=== PATIENT | male | born 1940 | race Caucasian/White ===

== ENCOUNTER 2016-05-02 09:13 | Emergency (ER) | payer MEDICARE, OTHER ==
--- NOTE | 2016-05-02 13:16 | XRAY Preliminary Report ---
Exam: XR Elbow 2 View RT IMPRESSION: 1. Prominent medial soft tissue swelling without displaced fracture. 2. Small osteophytes and epicondylar spurring with small elbow effusion. In the setting of trauma the presence of an elbow effusion is suggestive of a nondisplaced fracture. [facility] SITE ID: [id number]
--- NOTE | 2016-05-02 13:19 | XRAY Report ---
EXAM: Right Elbow Radiography EXAM DATE: 05/02/2016 12:45 PM. CLINICAL HISTORY: Blunt trauma, swelling. COMPARISON: None. TECHNIQUE: 3 views, 4 films. FINDINGS: Bones: No displaced fracture seen. Joints: Small osteophytes at the margin of the ulna with enthesopathic spurring at the lateral epicon dyle. Small elbow effusion. Soft Tissues: Prominent medial soft tissue swelling. IMPRESSION: 1. Prominent medial soft tissue swelling without displaced fracture. 2. Small osteophytes and epicondylar spurring with small elbow effusion. In the setting of trauma the presence of an elbow effusion is suggestive of a nondisplaced fracture. [facility] Referring Provider Line: [phone] SITE ID: [id number]
--- NOTE | 2016-05-02 13:19 | XRAY Preliminary Report ---
Exam: XR Forearm RT IMPRESSION: Medial soft tissue swelling without displaced fracture. Small elbow effusion. Please see elbow report for additional comments. [facility] SITE ID: [id number]
--- NOTE | 2016-05-02 13:22 | XRAY Report ---
EXAM: Right Forearm Radiography EXAM DATE: 05/02/2016 12:45 PM. CLINICAL HISTORY: Blunt trauma, swelling. COMPARISON: None. TECHNIQUE: 2 views. FINDINGS: Bones: Normal. No fractures or bone lesions. Joints: No dislocation. Small elbow effusion. Soft Tissues: Medial soft tissue swelling. IMPRESSION: Medial soft tissue swelling without displaced fracture. Small elbow effusion. Please see elbow report for additional comments. [facility] Referring Provider Line: [phone] SITE ID: [id number]
--- NOTE | 2016-05-02 14:02 | ED Physician Documentation ---
History of Present Illness - Stated complaint Stated Complaint: RT ARM SWELLING - Chief complaint Chief Complaint: Ext Problem PD PAST MEDICAL HISTORY - Past Medical History Past Medical History: Yes Cardiovascular: Hypertension, High cholesterol, Atrial fibrillation Respiratory: Asthma, Pneumonia Endocrine/Autoimmune: Type 2 diabetes Other Past Medical History: prostate cancer, had seed placed. cellulitis - Past Surgical History Past Surgical History: Yes - Present Medications Home Medications: Ambulatory Orders Medication Instructions Recorded Confirmed Aspirin [Aspir-Low] 1 tab PO DAILY 05/02/16 05/02/16 Furosemide 1 tab PO DAILY 05/02/16 05/02/16 Lisinopril 1 tab PO DAILY 05/02/16 05/02/16 Lovastatin 40 mg PO DAILY 05/02/16 05/02/16 Metoprolol Succinate 1 tab PO DAILY 05/02/16 05/02/16 diltiaZEM [Cardizem] 180 mg PO BID 05/02/16 05/02/16 metFORMIN [Glucophage] 1,000 mg PO BID 05/02/16 05/02/16 - Allergies Allergies/Adverse Reactions: Allergies Allergy/AdvReac Type Severity Reaction Status Date / Time digitalis leaf Allergy Hives Verified 05/02/16 09:27 - Social History Does the pt smoke?: No Smoking Status: Never smoker Does the pt drink ETOH?: Yes Results - Vitals Vitals: Vital Signs - 24 hr 05/02/16 09:25 Temperature 36.8 C Heart Rate 84 Respiratory 18 Rate Blood Pressure 147/81 H O2 Saturation 99 Oxygen O2 Source Room air Departure - Departure Disposition: 01 Home, Self Care Clinical Impression: Elbow fracture, right Qualifiers: Encounter type: initial encounter Fracture type: closed Qualified Code(s): S42.401A - Unspecified fracture of lower end of right humerus, initial encounter for closed fracture Condition: Good Instructions: ED Fx Elbow, ED Splint Care Fiberglass Follow-Up: Michele Thakur MD [Provider Admit Priv/Credential] - Comments: The xray shows fluid in your elbow joint which suggests there is a non displaced fracture. So we have placed you in a splint and I have put in a referral to orthopedics ( you will need to call to schedule) Try to elevate your arm as much as possible to decrease the swelling Take tylenol as needed for the pain. And please follow up with your PMD to get your blood pressure rechecked - it was high today
[2016-05-02 14:12] VITALS: BP 139/72
== END 2016-05-02 14:13 | disposition home or self-care (01) ==
LOC: ED 09:13
DX: S42.401A Unspecified fracture of lower end of right humerus, initial encounter for closed fracture (principal); W22.8XXA Striking against or struck by other objects, initial encounter; I10 Essential (primary) hypertension; I48.91 Unspecified atrial fibrillation; E11.9 Type 2 diabetes mellitus without complications; Z79.84 Long term (current) use of oral hypoglycemic drugs; Z79.899 Other long term (current) drug therapy; Z79.82 Long term (current) use of aspirin; Z85.46 Personal history of malignant neoplasm of prostate
CPT/HCPCS: 29125; 99283

== ENCOUNTER 2016-06-19 07:30 | Outpatient (CLI) | payer MEDICARE, OTHER | END 2016-06-19 07:31 | disposition home or self-care (01) | DX: E11.9 Type 2 diabetes mellitus without complications (principal); D64.9 Anemia, unspecified; C61 Malignant neoplasm of prostate; R74.0 Nonspecific elevation of levels of transaminase and lactic acid dehydrogenase [LDH]; E78.5 Hyperlipidemia, unspecified ==

== ENCOUNTER 2017-06-16 10:56 | Outpatient (CLI) | payer MEDICARE, OTHER ==
--- NOTE | 2017-06-16 13:42 | XRAY Report ---
TWO VIEW CHEST: 06/16/2017 CLINICAL INDICATION: Abnormal breath sounds, asthma. COMPARISON: 07/08/2010. FINDINGS: Frontal and lateral views of the chest demonstrate an enlarged cardiac silhouette. Bibasilar airspace disease and small effusions are stable. No new infiltrate or pneumothorax is present. IMPRESSION: STABLE CARDIOMEGALY, BIBASILAR AIRSPACE DISEASE, AND SMALL EFFUSIONS. TD: 06/16/2017 13:40
== END 2017-06-16 10:57 | disposition home or self-care (01) ==
LOC: DI.S 10:56
PROVIDERS: ATTEND Nurse Practitioner Family
DX: J98.4 Other disorders of lung (principal); J90 Pleural effusion, not elsewhere classified; I51.7 Cardiomegaly
CPT/HCPCS: 71046

== ENCOUNTER 2017-06-24 07:34 | Outpatient (CLI) | payer MEDICARE, OTHER ==
[2017-06-24 10:23] LABS: BASOPHILS % (AUTO) 0.4 %; EOSINOPHILS # (AUTO) 0.1 10^3/uL (0.0-0.7); EOSINOPHILS % (AUTO) 1.4 %; HGB - HEMOGLOBIN 14.2 g/dL (14.0-18.0); LYMPHOCYTES # (AUTO) 0.9 10^3/uL (1.5-3.5); LYMPHOCYTES % (AUTO) 17.3 %; MEAN CORPUSCULAR HEMOGLOBIN 33.9 pg (27.0-31.0); MEAN CORPUSCULAR HGB CONC 32.7 g/dL (32.0-36.0); MEAN CORPUSCULAR VOLUME 103.9 fL (80.0-94.0); MEAN PLATELET VOLUME 8.9 fL (7.4-11.4); MONOCYTES # (AUTO) 0.7 10^3/uL (0.0-1.0); MONOCYTES % (AUTO) 12.9 %; NEUTROPHILS # (AUTO) 3.6 10^3/uL (1.5-6.6); PLT - PLATELET COUNT 146 10^3/uL (130-450); RED BLOOD COUNT 4.19 10^6/uL (4.70-6.10); RED CELL DISTRIBUTION WIDTH 14.9 % (12.0-15.0); WHITE BLOOD COUNT 5.3 x10^3/uL (4.8-10.8)
[2017-06-24 10:45] LABS: HB2 TOTAL 15.7 g/dL; HEMOGLOBIN A1C 0.65 g/dL; HEMOGLOBIN A1C % 5.9 % (4.6-6.2)
[2017-06-24 10:49] LABS: ALBUMIN 4.2 g/dL (3.2-5.5); ALBUMIN/GLOBULIN RATIO 1.3 (1.0-2.2); ALKALINE PHOSPHATASE 93 IU/L (42-121); ALT ALANINE AMINOTRANSFERASE 15 IU/L (10-60); AST ASPARTATE AMINOTRANSFERASE 15 IU/L (10-42); BILIRUBIN,TOTAL 0.8 mg/dL (0.2-1.0); BUN - BLOOD UREA NITROGEN 48 mg/dL (6-20); CALCIUM 8.7 mg/dL (8.5-10.3); CARBON DIOXIDE - CO2 27 mmol/L (21-32); CHLORIDE 102 mmol/L (101-111); CHOL/HDL RATIO 2.1 (<5.0); CHOLESTEROL 140 mg/dL; CREATININE 2.2 mg/dL (0.6-1.2); GFR - MDRD 29 (>89); GLUCOSE 108 mg/dL (70-100); HDL CHOLESTEROL 66 mg/dL; LDL CHOLESTEROL,CALCULATED 60 mg/dL; LDL/HDL RATIO 0.9 (<3.6); SODIUM 136 mmol/L (135-145); TOTAL PROTEIN 7.4 g/dL (6.7-8.2); VLDL CHOLESTEROL 14 mg/dL
== END 2017-06-24 07:35 | disposition home or self-care (01) ==
LOC: LAB.F 07:34
PROVIDERS: ATTEND Nurse Practitioner Family
DX: E11.9 Type 2 diabetes mellitus without complications (principal); I10 Essential (primary) hypertension; R74.0 Nonspecific elevation of levels of transaminase and lactic acid dehydrogenase [LDH]; E78.5 Hyperlipidemia, unspecified; I50.9 Heart failure, unspecified; I51.7 Cardiomegaly
CPT/HCPCS: 36415; 80053; 80061; 82043; 83036; 83721; 85025

== ENCOUNTER 2017-10-12 12:41 | Outpatient (CLI) | payer MEDICARE, OTHER | END 2017-10-12 12:42 | disposition home or self-care (01) | LOC: EMS 12:41 | PROVIDERS: ATTEND Surgery | DX: R41.82 Altered mental status, unspecified (principal); R09.89 Other specified symptoms and signs involving the circulatory and respiratory systems | CPT/HCPCS: A0425; A0427 ==

== ENCOUNTER 2017-10-12 12:58 | Inpatient (IN) | payer MEDICARE, OTHER ==
[2017-10-12] MEDS ORDERED: ALBUTEROL NEB 2.5 MG/3 ML INH STA (13:11)
[2017-10-12 13:13] LABS: VBG BASE EXCESS -12.9 mmol/L (-2 - +2); VBG PCO2 98.3 mmHg (41-51); VBG PH 6.959 (7.31-7.41); VBG PO2 79.4 mmHg (25-47); VBG TOTAL CO2 24.6 mmol/L (24-29)
[2017-10-12 13:15] LABS: BASOPHILS # (AUTO) 0.1 10^3/uL (0.0-0.1); EOSINOPHILS % (AUTO) 0.1 %; LYMPHOCYTES # (AUTO) 0.5 10^3/uL (1.5-3.5); MEAN CORPUSCULAR HGB CONC 30.8 g/dL (32.0-36.0); NEUTROPHILS # (AUTO) 8.2 10^3/uL (1.5-6.6); WHITE BLOOD COUNT 9.5 x10^3/uL (4.8-10.8)
[2017-10-12 13:31] LABS: BASOPHILS % (AUTO) 0.5 %; HGB - HEMOGLOBIN 14.7 g/dL (14.0-18.0); LYMPHOCYTES % (AUTO) 4.9 %; MEAN CORPUSCULAR HEMOGLOBIN 33.4 pg (27.0-31.0); MEAN CORPUSCULAR VOLUME 108.4 fL (80.0-94.0); MEAN PLATELET VOLUME 9.2 fL (7.4-11.4); MONOCYTES # (AUTO) 0.9 10^3/uL (0.0-1.0); NEUTROPHILS % (AUTO) 85.5 %; PLT - PLATELET COUNT 207 10^3/uL (130-450); RED BLOOD COUNT 4.41 10^6/uL (4.70-6.10); RED CELL DISTRIBUTION WIDTH 15.5 % (12.0-15.0)
[2017-10-12 13:33] LABS: ALBUMIN 3.8 g/dL (3.2-5.5); BILIRUBIN,TOTAL 0.9 mg/dL (0.2-1.0); CALCIUM 8.7 mg/dL (8.5-10.3); CREATININE 4.8 mg/dL (0.6-1.2); TOTAL PROTEIN 7.7 g/dL (6.7-8.2)
[2017-10-12] MEDS ORDERED: SODIUM CHLORIDE 0.9% 1,000 ML IV ONE ×3 (13:46→16:10)
[2017-10-12] MEDS ORDERED: FUROSEMIDE 40 MG/4 ML VIAL IVP STA (13:46)
[2017-10-12] MEDS ORDERED: ETOMIDATE 40 MG/20 ML VIAL IVP STA (13:46)
[2017-10-12] MEDS ORDERED: SODIUM BICARBONATE ABBOJECT 50 MEQ/50 ML SYRINGE IVP STA (13:47)
[2017-10-12] MEDS ORDERED: INSULIN REGULAR HUMAN 100 UNIT/1 ML 10 ML MDV IVP STA (13:48)
[2017-10-12] MEDS ORDERED: DEXTROSE 50% ABBOJECT 25 GM/50 ML SYRINGE IVP STA (13:48)
--- NOTE | 2017-10-12 13:52 | XRAY Report ---
Procedure Date: 10/12/2017 Accession Number: [id number] / [id number] Procedure: XR - Chest 1 View X-Ray CPT Code: 76559 FULL RESULT: EXAM: CHEST RADIOGRAPHY EXAM DATE: 10/12/2017 01:01 PM. CLINICAL HISTORY: Shortness of breath. Unresponsive. COMPARISON: 06/16/2017. TECHNIQUE: 1 view. FINDINGS: Lungs/Pleura: The patient is slightly rotated. Increased, near complete opacification of the left hemithorax. Diffuse vascular engorgement and perihilar predominant airspace opacities in the right hemithorax, likely representing pulmonary edema. Large left and small right pleural effusions. Mediastinum: Cardiomegaly, difficult to accurately assess given opacification of the left hemithorax. Other: Thoracic spine DISH. IMPRESSION: 1. Cardiomegaly with pulmonary edema indicating CHF. 2. Near-complete opacification of the left hemithorax due to large pleural effusion with superimposed atelectasis and edema. 3. Small right pleural effusion. [facility]
[2017-10-12 14:08] LABS: PLATELET ESTIMATE, MANUAL NORMAL (130-450,000) (NORMAL); RBC MORPHOLOGY (MULTIPLE) 2+ MACROCYTOSIS (NORMAL)
[2017-10-12] MEDS ORDERED: cefTRIAXone 1 GM in SODIUM CHLORIDE 0.9% MINIBAG 100 ML IV STA (14:19)
[2017-10-12] MEDS ORDERED: AZITHROMYCIN INJ 500 MG in SODIUM CHLORIDE 0.9% 250 ML IV STA (14:20)
--- NOTE | 2017-10-12 14:20 | ED Physician Documentation ---
PD HPI DYSPNEA - Stated complaint Stated Complaint: UNRESPONSIVE - Chief complaint Chief Complaint: Resp - History obtained from History obtained from: Family, EMS - History of Present Illness Timing - onset: How many weeks ago (He has had some trouble breathing since last winter but his states his breathing is worsened in the last week with progressive weakness generally. He has become less active and attentive in the last 2-3 days and this morning was unresponsive. He has not had any particular cough or fevers. He has some leg edema.) Timing - onset during: Rest Timing - duration: Days Timing - details: Gradual onset, Still present (worsening mentation and alertness the past 2-3 days; unresponsive today.) Inciting event(s): Other (dyspnea worsening). No: Out of meds Improved by: Rest Worsened by: Exertion Associated symptoms: Cough (mild chronic) Similar symptoms before: Has not had sx before Recently seen: Clinic (couple weeks ago and had CXR which showed left effusion but no significant acute changes, according to the , and he was given MDI.) Review of Systems Unable to obtain: Intubated, AMS, Other (info from ) Constitutional: denies: Fever Nose: denies: Rhinorrhea / runny nose, Congestion Cardiac: denies: Chest pain / pressure Respiratory: reports: Dyspnea, Cough (mild chronic since last winter, per spouse ). denies: Wheezing GI: denies: Abdominal Pain, Vomiting, Diarrhea Skin: denies: Laceration (s) PD PAST MEDICAL HISTORY - Past Medical History Cardiovascular: Hypertension, High cholesterol, Atrial fibrillation Respiratory: Asthma, Emphysema, Pneumonia Endocrine/Autoimmune: Type 2 diabetes GI: None : Incontinence Psych: None Musculoskeletal: None Derm: Other Other Past Medical History: Cardioversion. Recent onset of incontinence - Past Surgical History Past Surgical History: Yes - Present Medications Home Medications: Ambulatory Orders Medication Instructions Recorded Confirmed Furosemide 40 mg PO DAILY 05/02/16 10/12/17 Lovastatin 40 mg PO QPM 05/02/16 10/12/17 diltiaZEM [Cardizem] 90 mg PO BID 05/02/16 10/12/17 metFORMIN [Glucophage] 1,000 mg PO QDBREAKFAST 05/02/16 10/12/17 Albuterol Sulfate [Proair Hfa 2 puffs INH Q4H PRN 10/12/17 10/12/17 Inhaler] Aspirin 162.5 mg PO DAILY 10/12/17 10/12/17 Fluticasone 110 Mcg [Flovent] 2 puffs INH BID 10/12/17 10/12/17 Lisinopril 10 mg PO DAILY 10/12/17 10/12/17 Metoprolol Tartrate 50 mg PO BID 10/12/17 10/12/17 - Allergies Allergies/Adverse Reactions: Allergies Allergy/AdvReac Type Severity Reaction Status Date / Time digitalis leaf Allergy Hives Verified 05/02/16 09:27 - Social History Does the pt smoke?: No Smoking Status: Never smoker Does the pt drink ETOH?: Yes ETOH Use: Wine Does the pt have substance abuse?: No - Immunizations Immunizations are current?: No - POLST Patient has POLST: No PD ED PE NORMAL - Vitals Vital signs reviewed: Yes - General General: Other (responsive only to tactile/painful stimuli (sternal rubbing)) - HEENT HEENT: Atraumatic, Pharynx benign, Other (does have gag reflex) - Neck Neck: Supple, no meningeal sign, No adenopathy, No JVD - Cardiac Cardiac: RRR, No murmur - Respiratory Respiratory: No: Clear bilaterally (diminished left side; with coarse sounds and some wheezing. ) - Abdomen Abdomen: Soft, Non distended. No: Normal bowel sounds (decreased) - Male Male : Other (external genitalia normal. There is yeast appearing rash in inguinal areas and around the base of penis. Does not appear too bad on scrutm, and no obvious scrotal swelling. ) - Rectal Rectal: Deferred - Derm Derm: Normal color, Warm and dry - Extremities Extremities: Other (2+ edema in both legs with some chronic stasis changes noted. ) - Neuro Neuro: No: Alert and oriented X 3 Eye Opening: To Pain Motor: Withdraws to Pain Verbal: None GCS Score: 7 - Psych Psych: No: Normal affect Results - Vitals Vitals: Vital Signs - 24 hr 10/12/17 10/12/17 10/12/17 12:58 13:00 13:06 Temperature 36.0 C L Heart Rate 83 91 84 Respiratory 39 H Rate Blood Pressure 102/59 L 77/57 L 102/59 L O2 Saturation 92 92 07/22/18 07/22/18 07/22/18 13:11 13:30 13:46 Temperature Heart Rate 86 83 82 Respiratory 35 H 34 H 16 Rate Blood Pressure 81/59 L 108/56 L 103/47 L O2 Saturation 94 91 L 10/12/17 10/12/17 14:20 14:26 Temperature Heart Rate 85 84 Respiratory 14 Rate Blood Pressure 91/53 L O2 Saturation 100 Oxygen O2 Source Room air Oxygen Flow Rate 15 - Labs Labs: Laboratory Tests 10/12/17 10/12/17 10/12/17 13:05 13:05 13:05 WBC 9.5 RBC 4.41 L Hgb 14.7 Hct 47.8 MCV 108.4 H MCH 33.4 H MCHC 30.8 L RDW 15.5 H Plt Count 207 MPV 9.2 Neut # (Auto) 8.2 H Lymph # (Auto) 0.5 L [place] # (Auto) 0.9 Eos # (Auto) 0.0 Baso # (Auto) 0.1 Absolute Nucleated RBC 0.04 Nucleated RBC % 0.4 Manual Slide Review Indicated Platelet Estimate NORMAL (130-450,000) RBC Morph Micro Appear 2+ MACROCYTOSIS VBG pH VBG pCO2 VBG pO2 VBG HCO3 VBG Total CO2 VBG O2 Saturation VBG Base Excess Sodium 140 Potassium 7.5 H* Chloride 106 Carbon Dioxide 27 Anion Gap 7.0 BUN 115 H* Creatinine 4.8 H Estimated GFR (MDRD) 12 L Glucose 140 H Lactic Acid Calcium 8.7 Total Bilirubin 0.9 AST 16 ALT 17 Alkaline Phosphatase 95 Troponin I < 0.04 B-Natriuretic Peptide Total Protein 7.7 Albumin 3.8 Globulin 3.9 Albumin/Globulin Ratio 1.0 Lipase 113 H Ethyl Alcohol 10/12/17 10/12/17 10/12/17 13:05 13:05 13:05 WBC RBC Hgb Hct MCV MCH MCHC RDW Plt Count MPV Neut # (Auto) Lymph # (Auto) [place] # (Auto) Eos # (Auto) Baso # (Auto) Absolute Nucleated RBC Nucleated RBC % Manual Slide Review Platelet Estimate RBC Morph Micro Appear VBG pH VBG pCO2 VBG pO2 VBG HCO3 VBG Total CO2 VBG O2 Saturation VBG Base Excess Sodium Potassium Chloride Carbon Dioxide Anion Gap BUN Creatinine Estimated GFR (MDRD) Glucose Lactic Acid 0.9 Calcium Total Bilirubin AST ALT Alkaline Phosphatase Troponin I B-Natriuretic Peptide 826 H Total Protein Albumin Globulin Albumin/Globulin Ratio Lipase Ethyl Alcohol < 5.0 10/12/17 13:05 WBC RBC Hgb Hct MCV MCH MCHC RDW Plt Count MPV Neut # (Auto) Lymph # (Auto) [place] # (Auto) Eos # (Auto) Baso # (Auto) Absolute Nucleated RBC Nucleated RBC % Manual Slide Review Platelet Estimate RBC Morph Micro Appear VBG pH 6.959 L VBG pCO2 98.3 H VBG pO2 79.4 H VBG HCO3 21.6 L VBG Total CO2 24.6 VBG O2 Saturation 92.5 H VBG Base Excess -12.9 L Sodium Potassium Chloride Carbon Dioxide Anion Gap BUN Creatinine Estimated GFR (MDRD) Glucose Lactic Acid Calcium Total Bilirubin AST ALT Alkaline Phosphatase Troponin I B-Natriuretic Peptide Total Protein Albumin Globulin Albumin/Globulin Ratio Lipase Ethyl Alcohol - Rads (name of study) chest xray Radiology: Prelim report reviewed (large left effusion, with crowding of the trachea slightly to the right. Right lung appears with some fluid c/w CHF. ) CXR post intubation Radiology: Prelim report reviewed (good tube position) CXR post thoracentesis Radiology: Prelim report reviewed, Discussed with rads (improved left lung garcia. Small air appearance at lower left at site of needle insertion c/w possible small PTX. Suggests repeat film in few hours or so. ) Procedures - Intubation Provider: Emergency physician Medications: Etomidate Blade: Glidescope Tube: Size-enter number (8), Cuffed, Marked at lips-enter cm (26) Route: Oral Confirmation: Direct visualization, Bilateral breath sounds, No abdominal breath sound, End tidal CO2, Pulse ox, Chest xray (goo position) Complications: No compications - Thoracentesis Preparation: Consent obtained (verbally from ), Sterile prep and drape, Supine (intubated) Technique: Catheter over needle, Intercostal space - enter (6), Lateral, Ultrasound used Fluid: Clear, Bloody (yellow with tint of redness), Sent for cell count, Sent for gram stain, Sent for culture Aftercare: CXR obtained, No complications, Patient tolerated well, Dressing applied PD MEDICAL DECISION MAKING - ED course Complexity details: considered differential (He is very sick in critical condition. He appears to be in some element of CHF. There is a very large left effusion and this may have caused respiratory difficulty as well. He likely has respiratory failure with hypercarbia and altered mentation. Will institute either BiPAP or intubation. His is yet to arrive on the initial assessment so intubation was deferred and respiratory support with oxygen and some airway positioning. His oxygenation was good. After discussing with his , we did elect for intubation emergently. This was done successfully without complications. He did have a gag reflex and some response to pain so was given etomidate prior to intubation. He then had NG and Patel placed as well. He had minimal urine output with the Patel catheter. He was given IV fluids for pressure support and this was maintaining it adequately initially. Given the large left effusion, I think that is a large part of his respiratory problem recently and so after talking with his I did do a thoracentesis with removal of 1600 mL of fluid from the left side. His peak pressures on ventilator did improve and his oxygenation also improved from 96-99% and we titrated down the FiO2. He had been given medications IV for his hyperkalemia related to the acute renal insufficiency presumably from hypoxic multisystem organ failure. I told his that this was very critical condition and potentially life-threatening. I did talk with the hospitalist and presented the patient currently in stable condition though with critical findings of high potassium, renal failure, intubated with respiratory failure and postthoracentesis.), d/w family (I talked with his when she arrived. At that time we had had opportunity get chest x-ray and blood gas and this showed respiratory failure and large left effusion. I have confirmed and discussed with her the treatment possibilities. She feels the patient would like brief intubation and thoracentesis but not prolonged intubation. She does not feel he would want transfer for dialysis. Therefore the treatment plan at this point is intubation and emergent thoracentesis as well as standard NG tube and Patel and medications. CPR is okay. However she wants to be able to reassess his status over a few days as we discussed the possibility that he may have multisystem organ failure due to the hypoxia and dehydration. If so his mentation and kidney function may not improve and if so she may want to discontinue treatments at that point. I told her it would take a little bit of time to see the recover possibility and she understands that.) - Critical Care Time(min): 80 Time Includes: Direct patient care, Review records, Reassess patient, Document care, Coordinate care, Medical consult, Family consult for tx dec Data interpretation: Labs, CXR Procedures included in critical care time: Ventilator mgmt Procedures excluded from critical care time: Intubation, EKG, See progress note (thoracentesis) - Sepsis Event Vital Signs: Vital Signs - 24 hr 10/12/17 10/12/17 10/12/17 12:58 13:00 13:06 Temperature 36.0 C L Heart Rate 83 91 84 Respiratory 39 H Rate Blood Pressure 102/59 L 77/57 L 102/59 L O2 Saturation 92 92 10/12/17 10/12/17 10/12/17 13:11 13:30 13:46 Temperature Heart Rate 86 83 82 Respiratory 35 H 34 H 16 Rate Blood Pressure 81/59 L 108/56 L 103/47 L O2 Saturation 94 91 L 10/12/17 10/12/17 14:20 14:26 Temperature Heart Rate 85 84 Respiratory 14 Rate Blood Pressure 91/53 L O2 Saturation 100 Oxygen O2 Source Room air Oxygen Flow Rate 15 Departure - Departure Disposition: 66 [facility] DC/Xfer Clinical Impression: Hyperkalemia, Pleural effusion, left, Tinea cruris Altered mental state Qualifiers: Altered mental status type: somnolence Qualified Code(s): R40.0 - Somnolence Respiratory failure Qualifiers: Chronicity: acute Respiratory failure complication: hypoxia and hypercapnia Qualified Code(s): J96.01 - Acute respiratory failure with hypoxia Renal failure Qualifiers: Renal failure chronicity: acute on chronic Acute renal failure type: unspecified Chronic kidney disease stage: unspecified stage Qualified Code(s): N17.9 - Acute kidney failure, unspecified Condition: Critical Record reviewed to determine appropriate education?: Yes
[2017-10-12] MEDS ORDERED: LORazepam 2 MG/ML VIAL ONE (14:38)
--- NOTE | 2017-10-12 14:40 | XRAY Report ---
Procedure Date: 10/12/2017 Accession Number: [id number] / [id number] Procedure: XR - Chest 1 View X-Ray CPT Code: 69066 FULL RESULT: EXAM: CHEST RADIOGRAPHY EXAM DATE: 10/12/2017 02:06 PM. CLINICAL HISTORY: Post intubation. COMPARISON: Multiple prior chest radiographs, most recent 10/12/2017 1:01 PM. TECHNIQUE: 1 view. FINDINGS: The patient is slightly rotated. Lungs/pleura: Increased, dense opacification of the left hemithorax. Similar appearance of diffuse vascular enlargement and perihilar predominant air space opacities in the right hemithorax likely representing pulmonary edema. Persistent large left and small right pleural effusions. No pneumothorax. Mediastinum: Difficult to assess given dense opacification of the left hemithorax. Other: Interval intubation. The endotracheal tube terminates approximately 3 cm above the amanda. IMPRESSION: 1. Interval intubation. 2. Ongoing pulmonary edema. 3. Increased, dense opacification of the left hemithorax representing a combination of large effusion, atelectasis, and edema. [facility]
[2017-10-12] MEDS ORDERED: LORazepam 2 MG/ML VIAL IVP PRN (15:09)
[2017-10-12] MEDS ORDERED: LORazepam 2 MG/ML VIAL IVP STA (15:09)
[2017-10-12] MEDS ORDERED: PROCHLORPERAZINE 10 MG/2 ML VIAL IVP PRN (15:26)
[2017-10-12] MEDS ORDERED: SODIUM POLYSTYRENE SULFONATE 15 GM/60 ML BOTTLE PO STA (15:28)
--- NOTE | 2017-10-12 15:31 | XRAY Report ---
Procedure Date: 10/12/2017 Accession Number: [id number] / [id number] Procedure: XR - Chest 1 View X-Ray CPT Code: 57447 FULL RESULT: EXAM: CHEST RADIOGRAPHY EXAM DATE: 10/12/2017 03:16 PM. CLINICAL HISTORY: Post thoracentesis. COMPARISON: 10/12/2017. TECHNIQUE: 1 view. FINDINGS: Lungs/Pleura: New left thoracentesis with significant decrease in size of left pleural effusion. There is a small triangular-shaped gas density lucency at the left costophrenic angle, consistent with a very small pneumothorax and suggestive of a noncompliant left lung after reexpansion. There interstitial densities bilaterally. Mediastinum: There is cardiomegaly. There is an endotracheal tube with tip 1.6 cm above amanda. Other: None. IMPRESSION: Small pneumothorax at left lateral base costophrenic angle, after thoracentesis suggestive of incompletely expanded or noncompliant left lung. [facility] The above findings were discussed with iKko Landa by Dr. Juan Reynoso at 15:30 hrs on 10/12/17.
[2017-10-12 16:05] LABS: ABG HCO3 20.4 mmol/L (22.0-26.0); ABG OXYGEN SATURATION 97 % (94-98); ABG PO2 91 mmHg (80-100); ABG TCO2 22.4 MMOL/L (21.0-29.0); ALLEN TEST POSITIVE
[2017-10-12 16:08] LABS: ABG PH 7.11 (7.35-7.45)
[2017-10-12 16:09] LABS: ABG PCO2 65 mmHg (34-45)
[2017-10-12 16:31] LABS: CALCIUM 8.2 mg/dL (8.5-10.3); CREATININE 4.8 mg/dL (0.6-1.2)
[2017-10-12] MEDS: DEXTROSE 5%-0.9% NACL 1,000 ML IV SCH (16:36)
[2017-10-12 18:35] LABS: BF SOURCE PLEURAL; CC,BF RBC 14129 /mm^3
[2017-10-12 18:36] LABS: BF COLOR PINK
[2017-10-12] MEDS ORDERED: AMIODARONE 360 MG/200 ML 200 ML IV SCH (18:45)
[2017-10-12] MEDS ORDERED: AMIODARONE 150 MG/100 ML 100 ML IV SCH (18:45)
[2017-10-12] MEDS ORDERED: THIAMINE INJ 100 MG, FOLIC ACID INJ 1 MG in SODIUM CHLORIDE 0.9% 100ML 100 ML IV SCH (19:00)
[2017-10-12] MEDS: PROPOFOL 1000 MG/100 ML 100 ML IV SCH (19:03)
[2017-10-12] MEDS: SODIUM CHLORIDE FLUSH 0.9% 10 ML SYRINGE IVP SCH (19:03)
[2017-10-12 19:10] LABS: LYMPHOCYTES %,BODY FLUID 28; MACROPHAGES %,BODY FLUID 31 %; MESOTHELIAL %, BF 15 %; MONOCYTES %,BODY FLUID 13 %
[2017-10-12] MEDS ORDERED: SODIUM POLYSTYRENE SULFONATE 15 GM/60 ML BOTTLE PR SCH (19:48)
[2017-10-12] MEDS ORDERED: INSULIN REGULAR HUMAN 100 UNIT/1 ML 10 ML MDV IVP SCH (19:50)
[2017-10-12] MEDS ORDERED: DEXTROSE 50% ABBOJECT 25 GM/50 ML SYRINGE IVP SCH (19:51)
[2017-10-12] MEDS ORDERED: DEXTROSE 5% 250 ML IV ONE (19:57)
--- NOTE | 2017-10-12 20:22 | XRAY Report ---
Procedure Date: 10/12/2017 Accession Number: [id number] / [id number] Procedure: XR - Chest for Line Placement CPT Code: FULL RESULT: EXAM: CHEST RADIOGRAPHY EXAM DATE: 10/12/2017 07:34 PM. CLINICAL HISTORY: Right IJ CVC placement. COMPARISON: Multiple prior chest radiographs, most recent 10/12/2017 3:07 PM. TECHNIQUE: 1 view. FINDINGS: Lungs/Pleura: Similar appearance of small left pneumothorax with approximately 6 mm apical pleural separation and dominant ex vacuo component in the lateral left base. Interval reaccumulation of small left pleural effusion. Persistent small right pleural effusion. No right pleural effusion. Ongoing pulmonary vascular engorgement. Mediastinum: Cardiomegaly, as before. Other: The patient remains intubated. A new enteric tube terminates in the proximal stomach. A new right IJ central venous catheter likely terminates in the upper SVC. IMPRESSION: 1. New right IJ CVC likely terminating in the upper SVC. No right pneumothorax. 2. Similar appearance of small left pneumothorax with dominant ex vacuo component in the lateral left base, with interval reaccumulation of small left pleural effusion. 3. Persistent pulmonary vascular congestion and small right pleural effusion. [facility] The above findings were discussed with Dr. Connolly by Dr. Shelia Guadalupe at 20:20 hrs on 10/12/17.
[2017-10-12] MEDS ORDERED: NYSTATIN CREAM 15 GM TUBE TOP ONE (20:37)
[2017-10-12] MEDS ORDERED: MIDAZOLAM 50 MG/10 ML VIAL ONE (20:37)
[2017-10-12] MEDS: MIDAZOLAM DRIP 50 MG/100 ML BAG IV SCH (20:38)
[2017-10-12] MEDS: NYSTATIN CREAM 15 GM TUBE TOP SCH ×2 (21:49→22:56)
[2017-10-12] MEDS: FAMOTIDINE 20 MG/50 ML 50 ML IV SCH (22:52)
[2017-10-12 23:40] LABS: BILIRUBIN,URINE NEGATIVE (NEGATIVE); GLUCOSE, URINE (UA) NEGATIVE (NEGATIVE); KETONES,URINE (UA) NEGATIVE (NEGATIVE); LEUKOCYTE ESTERASE, URINE NEGATIVE (NEGATIVE); NITRITE,URINE NEGATIVE (NEGATIVE); OCCULT BLOOD,URINE LARGE (NEGATIVE); PH,URINE 5.5 PH (5.0-7.5); PROTEIN,URINE 100 mg/dL (NEGATIVE); UROBILINOGEN,URINE 0.2 (NORMAL) E.U./dL (NORMAL)
[2017-10-12 23:49] LABS: CLARITY,URINE CLOUDY (CLEAR)
[2017-10-12 23:54] LABS: BACTERIA,URINE None Seen /HPF (None Seen); RBC,URINE TNTC /HPF (0-5); SQUAMOUS EPITHELIAL CELL,UR RARE Squamous (<= Few)
[2017-10-13] MEDS: SODIUM CHLORIDE FLUSH 0.9% 10 ML SYRINGE IVP SCH ×4 (00:31→23:14)
[2017-10-13] MEDS: INSULIN REGULAR HUMAN 100 UNIT/1 ML 10 ML MDV SUBQ SCH ×4 (00:31→18:29)
[2017-10-13] MEDS: PROPOFOL 1000 MG/100 ML 100 ML IV SCH ×3 (00:32→22:46)
[2017-10-13] MEDS ORDERED: MIN OIL/DIMETHICON/COCONUT OIL 92 GM TUBE TOP PRN (01:12)
--- NOTE | 2017-10-13 01:14 | HISTORY & PHYSICAL EXAMINATION ---
DATE OF SERVICE: 10/12/2017 Physician: Liz Hernandez MD HISTORY OF PRESENT ILLNESS: This is a 76-year-old white male with history of diabetes, obesity, alcoholism (he drinks two 1 liter bottles of wine every day), history of noncompliance (he has not been to a doctor in 2 years), history of atrial fibrillation previously required cardioversion, history of hypertension and asthma/COPD on inhalers. The gives the entire history and also history from the emergency room doctor. The patient has had shortness of breath for about 6 months, severely worse over the past 3 days. The patient has been too short of breath to take in any fluid or solid foods, according to the . This morning when she awoke, she was unable to arouse him and therefore called 911. The paramedics found him to be hyperventilating, had had shallow breaths and was poorly responsive, even to a sternal rub. He was brought in and evaluated in the emergency room where he continued to have only shallow and infrequent respirations and was intubated. Imaging also showed that he had a large pleural effusion and therefore he underwent thoracentesis in the emergency room, removing 1600 mL of yellow fluid that was red-tinged. This was on the left side, chest x-ray after thoracentesis showed a significant decrease in the size of the effusion but a small pneumothorax on the left, indicating incomplete reexpansion. The patient was hypotensive in the emergency room with blood pressures of 70-90 systolic. He started to get fluid boluses of saline. The patient was noted to have new renal insufficiency with a creatinine of 4.8 and a potassium of 7.5. He received insulin, D50 and bicarbonate. The emergency room doctor and I both confirmed with the , who is at his bedside that he is a FULL CODE. She does say that if the renal failure does not reverse, no dialysis will be planned and then she will reverse the code status. On telemetry, he was in probable atrial fibrillation with rapid rate and had just had 2 separate episodes of polymorphic ventricular tachycardia and a rate of 280 that stopped spontaneously. One episode could be consistent with torsades. PAST MEDICAL HISTORY: Diabetes, on oral agents, hypertension, obesity, heart failure with unknown ejection fraction, asthma, COPD, noncompliance with medical office visits, noncompliance with diabetic diet, alcoholism. ALLERGIES: DIGITALIS. MEDICATIONS: 1. Lisinopril 10 mg daily. 2. Baby aspirin daily. 3. Albuterol inhaler p.r.n. 4. Flovent inhaler b.i.d. 5. Lovastatin 40 mg every evening. 6. Lasix 40 mg daily. 7. Metoprolol tartrate 50 mg b.i.d. 8. Metformin 1000 mg daily in the a.m. 9. Cardizem 90 mg b.i.d. REVIEW OF SYSTEMS: The patient has had no fever or cough. The patient is compliant with his medications according to the , but not with his diet or doctor visits. He has not seen a doctor in 2 years. The patient had seen Dr. Fong and Dr. Short in the past, but was "not happy with the medications that they prescribed." The details of those medications are not known. The states that he has never been told that he needed a defibrillator; however, has not seen a doctor in 2 years. A comprehensive review of systems was performed, the answered the questions, the other organs are negative. The patient has venous stasis changes of his legs and edema, does not take any medications or leg elevation for this. The patient has a resting tremor of both hands that a friend told her probably was Parkinson's for him. FAMILY HISTORY: No inherited diseases. SOCIAL HISTORY: The patient does not smoke cigarettes. No illicit drug use. He does abuse alcohol drinking 2 liters of wine per day for many years, he has had no wine intake for the last 3 days. PHYSICAL EXAMINATION: GENERAL: Intubated, white male. He has left gaze preference. The tells me he has right hearing loss. He is intubated. He has an intermittent tremor of both hands. HEENT: Reveals moist oral mucosa. NECK: Positive JVD in a supine position. No carotid bruits. CHEST: Diminished breath sounds diffusely. No wheezes or rales. HEART: Heart sounds are distant. No audible murmur. There is no RV heave, thrill, or gallop. ABDOMEN: Distended with probable ascites. There is probable hepatomegaly. There are decreased bowel sounds. EXTREMITIES: Legs have 4+ edema to the thighs, the shins have venous stasis changes that are purple. He has dry skin bilaterally. There was no redness or warmth. NEUROLOGIC: He is obtunded after getting Ativan for intubation. LABORATORY DATA: Sodium 140, potassium 7.5 on repeat 7.1, BUN 115, creatinine 4.8. Lactic acid 0.9, normal liver tests, normal bilirubin, troponin detectable, BNP 26, lipase 113. White blood count 9.5 with a left shift, hemoglobin 14.7 with an MCV of 108, platelet count normal at 207. Toxicology showed no alcohol in his blood stream. Blood gas showed pH of 6.9, pCO2 98, pO2 79. Chest x-ray initially showed left pleural effusion. Subsequent film showed significantly decreased left pleural effusion, but a small pneumothorax and proper position of the ET tube. There is a small right pleural effusion present. EKG: Sinus rhythm, right axis deviation, right bundle-branch block, poor R- wave progression. He has ST elevations in leads III and aVF, but no reciprocal changes of ST depressions or T-wave abnormality anywhere. IMPRESSION/DIAGNOSES 1. Respiratory failure requiring intubation. 2. Hypotension - rule out cardiogenic shock, septic shock, hypovolemic shock. 3. Pleural effusion, status post thoracentesis. 4. Acute renal insufficiency. 5. Hyperkalemia. 6. Diabetes, on Glucophage only. 7. Alcohol abuse history by 's description, there has been no intake for 3 days, this makes alcohol withdrawal potentially highly likely currently. 8. Medication noncompliance. 9. History of congestive heart failure with pleural effusions noted, anasarca on exam. 10. Chronic obstructive pulmonary disease/asthma. 11. VTach PLAN: Place the patient in the ICU. Continue with the ventilator, blood gases and adjustment of settings, Versed drip and propofol drip for sedation. CVP for placement in case Levophed or other inotropes are needed. Culture of the patient fully. Continue with empiric antibiotics for potential pneumonia as the source of infection given the abnormal chest x- ray. IV Zithromax and IV ceftriaxone will be used for potential community-acquired pneumonia, send the fluid from the thoracentesis for pH, glucose, LDH, cytology, culture, Gram stain. Begin a CIWA protocol; however, with Versed sedation, this would help with withdrawal symptoms and the sedation will not allow for some of the assessment and CIWA. Begin IV hydration to treat the presumed necrosis. Continue with insulin and D50 and bicarbonate as well as Kayexalate for the hyperkalemia. The telemetry recently showed be tachycardia. Therefore, amiodarone will be started. I discussed code status with the again, especially realizing that the patient is in critical condition given his respiratory failure and ventricular tachycardia and hyperkalemia. The confirmed that she wants everything done. However, if renal status does not improve by tomorrow, then she will change his FULL CODE status to a DNR. Obtain echo to evaluate LV and RV contractility. Prognosis is poor. The patient is critical, not expected to survive. CODE STATUS: FULL CODE. DEEP VENOUS THROMBOSIS PROPHYLAXIS: SCDs, no Lovenox because of the chronic renal insufficiency because acute renal insufficiency. ATTESTATION: The patient is expected to discharge or transfer to another facility within 96 hours: Yes. Critical Care time: 60 min: managing fluids, pressors, antiarrhythmic meds, ventilartor settings, Insulin and D50 and Kayexelate for high potassium and ordering other meds (for pnemonia). cc: MARISELA Sorenson TD: 10/12/2017 19:36 [id number]
[2017-10-13] MEDS: DEXTROSE 5%-0.9% NACL 1,000 ML IV SCH ×3 (03:02→21:47)
[2017-10-13] MEDS ORDERED: MIDAZOLAM 50 MG/10 ML VIAL ONE (04:24)
[2017-10-13] MEDS: AMIODARONE 360 MG/200 ML 200 ML IV SCH ×3 (04:35→22:59)
[2017-10-13 04:44] LABS: ABG BASE EXCESS -2.9 mmol/L (-2.0-3.0); ABG OXYGEN SATURATION 99 % (94-98); ABG PCO2 39 mmHg (34-45); ABG PH 7.37 (7.35-7.45); ABG TCO2 23.2 MMOL/L (21.0-29.0)
[2017-10-13 04:45] LABS: ALLEN TEST POSITIVE
[2017-10-13 04:46] LABS: ABG PO2 242 mmHg (80-100)
[2017-10-13] MEDS: MIDAZOLAM DRIP 50 MG/100 ML BAG IV SCH ×3 (05:11→18:29)
--- NOTE | 2017-10-13 05:47 | XRAY Report ---
Procedure Date: 10/13/2017 Accession Number: [id number] / [id number] Procedure: XR - Chest 1 View X-Ray CPT Code: 64145 FULL RESULT: EXAM: CHEST RADIOGRAPHY EXAM DATE: 10/13/2017 05:21 AM. CLINICAL HISTORY: F/U intubation and thoracentesis. COMPARISON: CHEST FOR LINE PLACEMENT 10/12/2017. TECHNIQUE: 1 view. FINDINGS: Lungs/Pleura: Pulmonary vascular congestion. Probable interstitial edema. Bibasilar atelectasis or consolidation, left greater than right. Small right and moderate left pleural effusions. No pneumothorax. Mediastinum: Mild to moderate cardiomegaly. Aortic atherosclerosis. Other: Endotracheal tube 3.7 cm above the amanda. Right internal jugular catheter at the junction of the brachiocephalic veins. Enteric tube suboptimally seen. It probably extends beyond the gastroesophageal junction. IMPRESSION: 1. Cardiomegaly and pulmonary vascular congestion with probable interstitial edema. 2. Bibasilar atelectasis or consolidation and pleural effusions, left greater than right. 3. ETT 3.7 cm above the amanda. Right IJ catheter at the junction of the brachiocephalic veins. Enteric tube probably extends beyond the gastroesophageal junction. RADIA
[2017-10-13 05:53] LABS: BASOPHILS % (AUTO) 0.2 %; EOSINOPHILS # (AUTO) 0.1 10^3/uL (0.0-0.7); EOSINOPHILS % (AUTO) 0.9 %; HGB - HEMOGLOBIN 13.3 g/dL (14.0-18.0); LYMPHOCYTES # (AUTO) 0.5 10^3/uL (1.5-3.5); LYMPHOCYTES % (AUTO) 7.5 %; MEAN CORPUSCULAR HEMOGLOBIN 33.4 pg (27.0-31.0); MEAN CORPUSCULAR HGB CONC 31.5 g/dL (32.0-36.0); MEAN PLATELET VOLUME 9.1 fL (7.4-11.4); MONOCYTES # (AUTO) 0.6 10^3/uL (0.0-1.0); MONOCYTES % (AUTO) 8.6 %; NEUTROPHILS % (AUTO) 82.8 %; PLT - PLATELET COUNT 151 10^3/uL (130-450); RED BLOOD COUNT 3.98 10^6/uL (4.70-6.10); RED CELL DISTRIBUTION WIDTH 15.3 % (12.0-15.0); WHITE BLOOD COUNT 7.2 x10^3/uL (4.8-10.8)
[2017-10-13 06:20] LABS: PHOSPHORUS 5.2 mg/dL (2.5-4.6)
[2017-10-13 06:21] LABS: ALBUMIN 2.6 g/dL (3.2-5.5); ALBUMIN/GLOBULIN RATIO 0.9 (1.0-2.2); BILIRUBIN,TOTAL 0.5 mg/dL (0.2-1.0); CREATININE 3.9 mg/dL (0.6-1.2); TOTAL PROTEIN 5.6 g/dL (6.7-8.2)
[2017-10-13] MEDS: PANTOPRAZOLE 40 MG VIAL IVP SCH (06:28)
[2017-10-13] MEDS: FAMOTIDINE 20 MG/50 ML 50 ML IV SCH ×2 (08:59→21:44)
[2017-10-13] MEDS: NYSTATIN CREAM 15 GM TUBE TOP SCH ×2 (09:00→21:46)
[2017-10-13] MEDS ORDERED: LOPERAMIDE 2 MG/10 ML UDC PO PRN (11:13)
--- NOTE | 2017-10-13 12:16 | PROVIDER PROGRESS NOTE ---
Assessment/Plan - Problem List (1) Hypotension Assessment/Plan: No evidence of NH or systolic LV failure (by Echo done today) to consider Cardiogenic shock. No evidence of increased Lactic Acid or bacteremia to consider Septic shock. Since the RV is dilated by Echo and patient was not drinking fluids, the most likely etiology of his hypotension is intravascular volume depletion plus right heart failure. Continue iv fluids. Taper Levophed to off keeping MAP >65. Continue a Patel and ng tube while he is critically ill. I updated the at bedside on his condition. *60 min of Critical Care time spent* on this and all medical problems below (2) Respiratory failure Qualifiers: Chronicity: acute Respiratory failure complication: hypoxia and hypercapnia Qualified Code(s): J96.01 - Acute respiratory failure with hypoxia ; J96.02 - Acute respiratory failure with hypercapnia; J96.02 - Acute respiratory failure with hypercapnia; J96.02 - Acute respiratory failure with hypercapnia Assessment/Plan: Pt on empiric antibiotics for a community acquired pneumonia. Ventilator support is slowly decreasing. Will assess mental status as well, once iv drip sedation is off. Await pleural fluid cultures. Sputum culture was also ordered if her makes any sputum. (3) Renal failure Qualifiers: Renal failure chronicity: acute on chronic Acute renal failure type: unspecified Chronic kidney disease stage: unspecified stage Qualified Code(s ): N17.9 - Acute kidney failure, unspecified; N18.9 - Chronic kidney disease, unspecified; N18.9 - Chronic kidney disease, unspecified Assessment/Plan: Pt has improved BUN/creat with iv hydration, making ATN from volume depletion very likley. Also, CK was 660 today, suggesting a component of Rhabdomyolysis as the cause of Renal failure. And, it is unknown if he has underlying chronic kidney disease, since he has not seen a doctor or had blood tests in 2 years. Continue gentle rehydration. Follow BMP daily. (4) Hyperkalemia Assessment/Plan: Improved with Insulin, D50 and Kayexelate dosing yesterday. Follow BMP daily. (5) Rhabdomyolysis Assessment/Plan: The described that the patient was too weak to even eat. He may have been laying extensively, to have caused rhabdo. Moitor daily CK. Continue iv saline hydration. (6) Pleural effusion, left Assessment/Plan: Daily CXR ordered while on a ventilator. Today's CXR showed re-accumulating pleural effusion, now moderate after the L sided thoracentesis done in the ER yesterday. Await fluid analysis, which is likley a transudate, from CHF vs exudate from CAP. (7) CAP (community acquired pneumonia) Qualifiers: Laterality: left Assessment/Plan: Bilateral consolidation seen on CXR, L>R. Continue empiric iv Ceftrixone and Zithromax. (8) Diabetes mellitus Assessment/Plan: Patient on a sliding scale Insulin coverage for non-eating patient. He has a hypoglycemia order and POC glu monitoring. Continue iv D5NS. (9) Anasarca Assessment/Plan: Possibly from R heart failure vs fom CKD vs from venous insufficiency vs lymphedema. No diuresis started currently, given his GUSTAVO since he needs intravascular volume replacement. Keep legs elevated. Will plan venous Dopplers of legs and Wound MAC clinic consult for wraps or other topical care. (10) Cor pulmonale Assessment/Plan: Echo done today shows normal LVEF, diastolic function could not be determined, RV dilation seen and RV function not yet described on a final echo report. Possible etiologies could be COPD or sleep apnea (given his obesity). No diuresis to be started yet. Possible Spironolactone in the future (11) Pulmonary HTN Assessment/Plan: As in #9 above. (12) V-tach Assessment/Plan: No further VTach on Amiodarone drip and with corrected serum potassium. Will plan 24 hours of Amiodarone then stop. (13) Afib Assessment/Plan: The patient converted to NSR at mid day today, per Telemetry. A 12-lead EKG confirmed this. Amiodarone iv drip and correction of hyperkalemia and hypoxia, probably helped. His CHADS score = 2 (HTN and Diabetes, but he doesn't have systolic LV CHF), therefore he should be on an anticoagulant in the future. The told me he has been in Afib before. It is unclear why he wasn't taking an anticoagulant. Perhaps that was one of the meds that he refused to take that were prescribed by Dr Torrez or Dr Smart (per his ). Or perhaps he ran out since he had not seen a doctor in 2 years. Will currently use a daily ASA, per rectal suppository, for CVA prophylaxis. (14) Altered mental status Assessment/Plan: While on sedative drips, unable to assess mental status for abnormality. Will await for weaning of vent setting, then iv Propofol and iv Versed weaning, then assess mental status. Will check an ammonia level. After sedatives weaned to off, he began to have shakes and BP cesia to 215/80, suggesting alcohol withdrawal. Will restart iv Versed (benzo). Possibly a head CT will be needed. (15) Non compliance with medical treatment Assessment/Plan: He needs follow-up with a PCP and Cardiology and possibly with a Laboratory Animal Caretaker and a Sleep Center, after this hospitalization. - Current Meds Current Meds: Current Medications Generic Name Dose Route Start Last Admin Trade Name Freq PRN Reason Stop Dose Admin Dextrose/Sodium Chloride 1,000 mls @ 100 mls/hr 10/12/17 16:00 10/13/17 12:00 D5ns IV 100 mls/hr .Q10H DIYA Infusion Famotidine 50 mls @ 100 mls/hr 10/12/17 21:00 10/13/17 09:29 Pepcid 20 Mg/50 Ml IV Infused BID DIYA Infusion Propofol 100 mls @ 7.404 mls/hr 10/12/17 19:00 10/13/17 11:05 Diprivan IV 0 mcg/kg/min .[id number] DIYA 0 mls/hr Protocol Titration 10 MCG/KG/MIN Midazolam HCl 50 mg in 100 mls @ 9.872 mls/hr 10/12/17 19:00 10/13/17 12:00 Versed Drip IV 0.02 mg/kg/hr .Q10H8M DIYA 4.936 mls/hr Protocol Titration 0.04 MG/KG/HR Amiodarone HCl/Dextrose 200 mls @ 16.667 mls/hr 10/13/17 00:45 10/13/17 12:00 Nexterone 360 Mg/200 Ml IV 0.5 mg/min .Q12H DIYA 16.667 mls/hr 0.5 MG/MIN Infusion Norepinephrine Bitartrate 8 mg 250 mls @ 15 mls/hr 10/12/17 20:00 10/13/17 11 :50 / Dextrose IV 0 mcg/min .[id number] DIYA 0 mls/hr Protocol Titration 8 MCG/MIN Insulin Human Regular 1 - 5 unit 10/13/17 00:00 10/13/17 12:05 Novolin R SUBQ Not Given Q6HR [facility] Protocol Nystatin 1 applic 10/12/17 19:00 10/13/17 09:00 Mycostatin Cream TOP 1 applic BID DIYA Administration Pantoprazole Sodium 40 mg 10/13/17 07:00 10/13/17 06:28 Protonix IVP 40 mg QDAC DIYA Administration Sodium Chloride 10 ml 10/12/17 17:00 10/13/17 09:00 Normal Saline Flush 0.9% IVP 20 ml 0100,0900,1700 DIYA Administration - Lab Result Fish Bone Diagrams: 10/13/17 05:05 10/13/17 05:05 - EKG Results EKG Interpreted Independently: Yes EKG Comparison: Changed from prior EKG EKG Findings: NSR, ventricular couplet, low voltage, right axis deviation, abnormal R wave progression. No Afib seen since yesterday. - Additional Planning My Orders: My Active Orders 10/12/17 14:50 CUL,BODY FLUID(AEROBIC) [RM] Routine 10/12/17 14:52 MISC TEST QUEST REFRIG [REFLAB] Routine MISC TEST QUEST REFRIG [REFLAB] Routine MISC TEST QUEST REFRIG [REFLAB] Routine 10/12/17 15:36 Miscellaneous Laboratory Order [LAB] Urgent 10/12/17 16:08 Ventilator Bundle [RC] Q8H 10/12/17 17:49 Ventilator Care - ICU [RC] Q4HR 10/12/17 18:40 Blood Glucose POC [RC] 0000,0600,1200,1800 Initiate Hypoglycemia Protocol [RC] .protocol 10/12/17 19:00 Midazolam Drip [Versed Drip] 50 mg in 100 ml IV 0.04 mg/kg/hr Nystatin Cream [Mycostatin Cream] 1 applic TOP BID Propofol 1000 mg/100 ml [Diprivan] 100 ml IV 10 mcg/kg/min 10/12/17 20:00 Dextrose 5% [D5w] 242 ml NORepinephrine [Levophed] 8 mg IV 8 mcg/min 10/13/17 00:00 Insulin Regular Human [NovoLIN R] 1 - 5 unit SUBQ Q6HR 10/13/17 00:45 Amiodarone 360 mg/200 ml [Nexterone 360 mg/200 ml] 200 ml IV 0.5 mg/min 10/13/17 01:12 Min Oil/Dimeth/Coconut Oil Crm [Cavilon] 1 applic TOP PRN PRN 10/13/17 07:00 Pantoprazole [Protonix] 40 mg IVP QDAC 10/13/17 11:13 Loperamide Liquid [Imodium Liquid] 2 mg PO PRN PRN 10/13/17 11:16 EKG - Electrocardiogram [RC] .ONCE 10/13/17 14:00 Azithromycin Inj [Zithromax Inj] 500 mg Sodium Chloride 0.9% [Normal Saline 0.9%] 250 ml IV Q24H 10/13/17 15:00 cefTRIAXone [Rocephin] 1 gm Sodium Chloride 0.9% Minibag [Normal Saline 0.9% Minibag] 100 ml IV Q24H 10/13/17 21:00 Thiamine Inj [Vitamin B-1 Inj] 100 mg Folic Acid Inj 1 mg Sodium Chloride 0.9 % 100Ml [Normal Saline 0.9% 100Ml] 100 ml IV Q24H 10/14/17 05:00 MAGNESIUM [CHEM] DAILYLAB PHOSPHORUS [CHEM] DAILYLAB 10/14/17 09:00 Chest 1 View X-Ray [XR] DAILY ABG - ARTERIAL BLOOD GAS [BG] DAILY CK- CREATINE KINASE [CHEM] DAILY 10/15/17 05:00 MAGNESIUM [CHEM] DAILYLAB PHOSPHORUS [CHEM] DAILYLAB 10/15/17 09:00 Chest 1 View X-Ray [XR] DAILY ABG - ARTERIAL BLOOD GAS [BG] DAILY CK- CREATINE KINASE [CHEM] DAILY 10/16/17 09:00 ABG - ARTERIAL BLOOD GAS [BG] DAILY CK- CREATINE KINASE [CHEM] DAILY 10/17/17 09:00 ABG - ARTERIAL BLOOD GAS [BG] DAILY Subjective - Subjective Patient Reports: Other (Intubated and sedated) Nursing Reports: Other (Liquid diarrhea x 2.) Objective Vital Signs: Vital Signs - 24 hr 10/12/17 10/12/17 10/12/17 15:55 16:06 16:30 Temperature Heart Rate 91 91 91 Heart Rate [ Monitoring electrodes] Respiratory 27 H 9 L Rate Blood Pressure 77/57 L 78/56 L Blood Pressure [Left Brachial artery] O2 Saturation 97 100 10/12/17 10/12/17 10/12/17 16:43 16:53 17:00 Temperature Heart Rate 93 94 95 Heart Rate [ Monitoring electrodes] Respiratory 18 18 Rate Blood Pressure 93/55 L 92/64 98/69 Blood Pressure [Left Brachial artery] O2 Saturation 99 94 100 10/12/17 10/12/17 10/12/17 17:20 17:30 17:40 Temperature Heart Rate 97 98 98 Heart Rate [ Monitoring electrodes] Respiratory 16 16 20 Rate Blood Pressure 97/74 104/71 105/76 Blood Pressure [Left Brachial artery] O2 Saturation 98 100 100 10/12/17 10/12/17 10/12/17 18:00 19:00 20:00 Temperature 36.0 C L Heart Rate 98 Heart Rate [ 99 103 H Monitoring electrodes] Respiratory 16 20 20 Rate Blood Pressure 95/73 Blood Pressure 106/74 131/87 H [Left Brachial artery] O2 Saturation 100 99 100 10/12/17 10/12/17 10/12/17 20:05 21:00 22:00 Temperature Heart Rate 103 H Heart Rate [ 102 H 100 Monitoring electrodes] Respiratory 20 20 Rate Blood Pressure Blood Pressure 92/59 L 115/73 [Left Brachial artery] O2 Saturation 100 100 10/12/17 10/12/17 10/13/17 22:18 23:00 00:00 Temperature 36.2 C L Heart Rate 103 H Heart Rate [ 63 66 Monitoring electrodes] Respiratory 20 20 Rate Blood Pressure Blood Pressure 83/60 L 104/65 [Left Brachial artery] O2 Saturation 100 100 10/13/17 10/13/17 10/13/17 00:23 01:00 02:00 Temperature Heart Rate 64 Heart Rate [ 71 74 Monitoring electrodes] Respiratory 20 20 Rate Blood Pressure Blood Pressure 92/65 106/72 [Left Brachial artery] O2 Saturation 100 100 10/13/17 10/13/17 10/13/17 03:00 04:00 04:19 Temperature 36.0 C L Heart Rate 81 Heart Rate [ 78 77 Monitoring electrodes] Respiratory 20 20 Rate Blood Pressure Blood Pressure 118/73 106/62 [Left Brachial artery] O2 Saturation 100 100 10/13/17 10/13/17 10/13/17 05:00 06:00 07:00 Temperature Heart Rate Heart Rate [ 71 68 69 Monitoring electrodes] Respiratory 20 20 20 Rate Blood Pressure Blood Pressure 103/65 98/57 L 110/67 [Left Brachial artery] O2 Saturation 100 100 100 10/13/17 10/13/17 10/13/17 07:10 08:00 09:00 Temperature 36.1 C L Heart Rate 75 Heart Rate [ 87 81 Monitoring electrodes] Respiratory 20 20 Rate Blood Pressure Blood Pressure 122/75 99/67 [Left Brachial artery] O2 Saturation 100 100 10/13/17 10/13/17 10/13/17 10:00 10:17 11:00 Temperature Heart Rate 95 Heart Rate [ 88 81 Monitoring electrodes] Respiratory 20 20 Rate Blood Pressure Blood Pressure 94/67 102/71 [Left Brachial artery] O2 Saturation 99 98 Oxygen O2 Source Mechanical ventilator I&O (Last 24 Hrs): Intake and Output Totals x24h 10/11/17 10/12/17 10/13/17 23:59 23:59 23:59 Intake Total 8221.247 1180.394 Output Total 160 1340 Balance 6959.212 3486.394 General: Other (Sedated, no gag reflex) HEENT: Mucous membr. moist/pink, Other (Intubated) Neck: Other (Obese) Neuro: Other (Sedated on Versed and Propofol drips) Cardiovascular: Regular rate, No murmurs Respiratory: Other (Clear lungs, on ventilator) Abdomen: Soft, Other (Distended, poss ascites and hepatomegaly) Genitourinary: Other (Patel in place) Extremities: Other (4+ edema to thighs (anasarca)) - Results Results: Laboratory Results WBC 7.2 x10^3/uL (4.8-10.8) 10/13/17 05:05 RBC 3.98 10^6/uL (4.70-6.10) L 10/13/17 05:05 Hgb 13.3 g/dL (14.0-18.0) L 10/13/17 05:05 Hct 42.2 % (42.0-52.0) 10/13/17 05:05 MCV 106.0 fL (80.0-94.0) H 10/13/17 05:05 MCH 33.4 pg (27.0-31.0) H 10/13/17 05:05 MCHC 31.5 g/dL (32.0-36.0) L 10/13/17 05:05 RDW 15.3 % (12.0-15.0) H 10/13/17 05:05 Plt Count 151 10^3/uL (130-450) 10/13/17 05:05 MPV 9.1 fL (7.4-11.4) 10/13/17 05:05 Neut # (Auto) 6.0 10^3/uL (1.5-6.6) 10/13/17 05:05 Lymph # (Auto) 0.5 10^3/uL (1.5-3.5) L 10/13/17 05:05 [place] # (Auto) 0.6 10^3/uL (0.0-1.0) 10/13/17 05:05 Eos # (Auto) 0.1 10^3/uL (0.0-0.7) 10/13/17 05:05 Baso # (Auto) 0.0 10^3/uL (0.0-0.1) 10/13/17 05:05 Absolute Nucleated RBC 0.01 x10^3/uL 10/13/17 05:05 Nucleated RBC % 0.1 /100WBC 10/13/17 05:05 Manual Slide Review Indicated 10/12/17 13:05 Platelet Estimate NORMAL (130-450,000) (NORMAL) 10/12/17 13:05 RBC Morph Micro Appear 2+ MACROCYTOSIS (NORMAL) 10/12/17 13:05 Bld Gas Analysis Time 0443 10/13/17 04:35 Sample Site LEFT RADIAL 10/13/17 04:35 ABG pH 7.37 (7.35-7.45) 10/13/17 04:35 ABG pCO2 39 mmHg (34-45) 10/13/17 04:35 ABG pO2 242 mmHg (80-100) H* 10/13/17 04:35 ABG HCO3 22.0 mmol/L (22.0-26.0) 10/13/17 04:35 ABG Total CO2 23.2 MMOL/L (21.0-29.0) 10/13/17 04:35 ABG O2 Saturation 99 % (94-98) H 10/13/17 04:35 ABG Oximetry Spot Check 100 % 10/13/17 04:35 ABG Base Excess -2.9 mmol/L (-2.0-3.0) L 10/13/17 04:35 Berny Test POSITIVE 10/13/17 04:35 VBG pH 6.959 (7.31-7.41) L 10/12/17 13:05 VBG pCO2 98.3 mmHg (41-51) H 10/12/17 13:05 VBG pO2 79.4 mmHg (25-47) H 10/12/17 13:05 VBG HCO3 21.6 mmol/L (23-28) L 10/12/17 13:05 VBG Total CO2 24.6 mmol/L (24-29) 10/12/17 13:05 VBG O2 Saturation 92.5 % (60-80) H 10/12/17 13:05 VBG Base Excess -12.9 mmol/L (-2 - +2) L 10/12/17 13:05 Respiration Rate 20 b/min 10/13/17 04:35 O2 Delivery Device VENTILATOR 10/12/17 15:59 Vent Mode SIMV 10/13/17 04:35 FiO2 80.00 10/13/17 04:35 Tidal Volume 500 mL 10/13/17 04:35 PEEP 5 cmH2O 10/13/17 04:35 Pressure Support Vent 10 cmH2O 10/13/17 04:35 Sodium 145 mmol/L (135-145) 10/13/17 05:05 Potassium 4.9 mmol/L (3.5-5.0) 10/13/17 05:05 Chloride 114 mmol/L (101-111) H 10/13/17 05:05 Carbon Dioxide 24 mmol/L (21-32) 10/13/17 05:05 Anion Gap 7.0 (6-13) 10/13/17 05:05 BUN 112 mg/dL (6-20) H* 10/13/17 05:05 Creatinine 3.9 mg/dL (0.6-1.2) H 10/13/17 05:05 Estimated GFR (MDRD) 15 (>89) L 10/13/17 05:05 Glucose 136 mg/dL (70-100) H 10/13/17 05:05 Lactic Acid 0.9 mmol/L (0.5-2.2) 10/12/17 13:05 Calcium 8.0 mg/dL (8.5-10.3) L 10/13/17 05:05 Phosphorus 5.2 mg/dL (2.5-4.6) H 10/13/17 05:05 Magnesium 2.0 mg/dL (1.7-2.8) 10/13/17 05:05 Total Bilirubin 0.5 mg/dL (0.2-1.0) 10/13/17 05:05 AST 23 IU/L (10-42) 10/13/17 05:05 ALT 13 IU/L (10-60) 10/13/17 05:05 Alkaline Phosphatase 70 IU/L (42-121) 10/13/17 05:05 Ammonia 27.4 umol/L (7-35) 10/13/17 11:35 Total Creatine Kinase 606 IU/L (22-269) H 10/13/17 05:05 Troponin I 0.05 ng/mL (<0.49) 10/12/17 20:48 B-Natriuretic Peptide 826 pg/mL (5-100) H 10/12/17 13:05 Total Protein 5.6 g/dL (6.7-8.2) L 10/13/17 05:05 Albumin 2.6 g/dL (3.2-5.5) L 10/13/17 05:05 Globulin 3.0 g/dL (2.1-4.2) 10/13/17 05:05 Albumin/Globulin Ratio 0.9 (1.0-2.2) L 10/13/17 05:05 Lipase 113 U/L (22-51) H 10/12/17 13:05 Urine Color BROWN 10/12/17 21:20 Urine Clarity CLOUDY (CLEAR) 10/12/17 21:20 Urine pH 5.5 PH (5.0-7.5) 10/12/17 21:20 Ur Specific Junction >=1.030 (1.002-1.030) H 10/12/17 21:20 Urine Protein 100 mg/dL (NEGATIVE) H 10/12/17 21:20 Urine Glucose (UA) NEGATIVE mg/dL (NEGATIVE) 10/12/17 21:20 Urine Ketones NEGATIVE mg/dL (NEGATIVE) 10/12/17 21:20 Urine Occult Blood LARGE (NEGATIVE) H 10/12/17 21:20 Urine Nitrite NEGATIVE (NEGATIVE) 10/12/17 21:20 Urine Bilirubin NEGATIVE (NEGATIVE) 10/12/17 21:20 Urine Urobilinogen 0.2 (NORMAL) E.U./dL (NORMAL) 10/12/17 21:20 Ur Leukocyte Esterase NEGATIVE (NEGATIVE) 10/12/17 21:20 Urine RBC TNTC /HPF (0-5) H 10/12/17 21:20 Urine WBC 4-5 /HPF (0-3) 10/12/17 21:20 Ur Squamous Epith Cells RARE Squamous (<= Few) 10/12/17 21:20 Urine Bacteria None Seen /HPF (None Seen) 10/12/17 21:20 Ur Microscopic Review INDICATED 10/12/17 21:20 Urine Culture Comments NOT INDICATED 10/12/17 21:20 Fluid Source PLEURAL 10/12/17 14:50 Fluid Color PINK 10/12/17 14:50 Fluid Clarity BLOODY 10/12/17 14:50 Fluid WBC 215 /mm^3 10/12/17 14:50 Fluid RBC 18197 /mm^3 10/12/17 14:50 Fluid Neutrophils % 6 % 10/12/17 14:50 Fluid Lymphocytes % 28 10/12/17 14:50 Fluid Monocytes % 13 % 10/12/17 14:50 Fluid Macrophages % 31 % 10/12/17 14:50 Fld Mesothelial Cell % 15 % 10/12/17 14:50 Fluid Other Cells % 7 % 10/12/17 14:50 Ethyl Alcohol < 5.0 mg/dL 10/12/17 13:05 ABX Reporting Has patient been on IV antibiotics over the past 48 hours?: Yes
[2017-10-13] MEDS: AZITHROMYCIN INJ 500 MG in SODIUM CHLORIDE 0.9% 250 ML IV SCH (13:55)
[2017-10-13] MEDS: cefTRIAXone 1 GM in SODIUM CHLORIDE 0.9% MINIBAG 100 ML IV SCH (15:15)
[2017-10-13] MEDS: SODIUM CHLORIDE 0.9% 100ML 100 ML IV ONE ×2 (16:59→18:45)
[2017-10-13] MEDS: SODIUM CHLORIDE FLUSH 0.9% 10 ML SYRINGE IVP PRN ×2 (17:00→17:04)
[2017-10-13] MEDS: SODIUM CHLORIDE 0.9% 500 ML IV ONE ×2 (17:01→17:03)
[2017-10-13] MEDS: THIAMINE INJ 100 MG, FOLIC ACID INJ 1 MG in SODIUM CHLORIDE 0.9% 100ML 100 ML IV SCH (21:42)
--- NOTE | 2017-10-13 22:33 | PROVIDER PROGRESS NOTE ---
Resource Director Note - Resource Director Note Resource Director Note: The patient has been running atrial fibrillation/flutter which has become tachycardic and has also had multiple runs of ventricular tachycardia. Because of this iincreased the patient's amiodarone drip to 0.7 mg/min from 0.5 mg/min. He has responded well, now with several conversions from a fib to nsr overnight , currently in afib/flutter, rate controlled at 86. Pt is sedated on a ventilator.
[2017-10-14] MEDS: INSULIN REGULAR HUMAN 100 UNIT/1 ML 10 ML MDV SUBQ SCH ×4 (00:43→18:00)
[2017-10-14 05:27] LABS: BASOPHILS % (AUTO) 0.3 %; EOSINOPHILS # (AUTO) 0.1 10^3/uL (0.0-0.7); EOSINOPHILS % (AUTO) 1.3 %; HGB - HEMOGLOBIN 13.2 g/dL (14.0-18.0); LYMPHOCYTES # (AUTO) 0.4 10^3/uL (1.5-3.5); LYMPHOCYTES % (AUTO) 6.5 %; MEAN CORPUSCULAR HEMOGLOBIN 33.1 pg (27.0-31.0); MEAN CORPUSCULAR HGB CONC 31.9 g/dL (32.0-36.0); MEAN PLATELET VOLUME 9.2 fL (7.4-11.4); MONOCYTES # (AUTO) 0.6 10^3/uL (0.0-1.0); MONOCYTES % (AUTO) 9.6 %; NEUTROPHILS # (AUTO) 5.5 10^3/uL (1.5-6.6); NEUTROPHILS % (AUTO) 82.3 %; PLT - PLATELET COUNT 150 10^3/uL (130-450); RED BLOOD COUNT 3.99 10^6/uL (4.70-6.10); RED CELL DISTRIBUTION WIDTH 14.6 % (12.0-15.0); WHITE BLOOD COUNT 6.7 x10^3/uL (4.8-10.8)
[2017-10-14 05:52] LABS: ALBUMIN 2.5 g/dL (3.2-5.5); ALBUMIN/GLOBULIN RATIO 0.9 (1.0-2.2); BILIRUBIN,TOTAL 0.5 mg/dL (0.2-1.0); CALCIUM 7.9 mg/dL (8.5-10.3); CREATININE 3.2 mg/dL (0.6-1.2); MAGNESIUM 1.7 mg/dL (1.7-2.8); PHOSPHORUS 3.8 mg/dL (2.5-4.6); TOTAL PROTEIN 5.4 g/dL (6.7-8.2)
[2017-10-14] MEDS: PANTOPRAZOLE 40 MG VIAL IVP SCH (06:42)
--- NOTE | 2017-10-14 06:49 | XRAY Report ---
Procedure Date: 10/14/2017 Accession Number: [id number] / [id number] Procedure: XR - Chest 1 View X-Ray CPT Code: 63349 FULL RESULT: EXAM: CHEST RADIOGRAPHY EXAM DATE: 10/14/2017 06:12 AM. CLINICAL HISTORY: F/U intubation and thoracentesis. COMPARISON: CHEST 1 VIEW 10/13/2017 5:21 AM. TECHNIQUE: 1 view. FINDINGS: Lungs/Pleura: Pulmonary vascular congestion with presumed pulmonary edema. Moderate left and small right pleural effusions with bibasilar atelectasis or consolidation, left greater than right. No pneumothorax identified. Mediastinum: Moderate cardiomegaly and/or pericardial effusion. Aortic atherosclerosis. Other: Endotracheal tube is in place with the tip about 2.9 cm above the amanda. Right internal jugular catheter at the junction of the brachiocephalic veins. Enteric tube tip is not well seen. IMPRESSION: 1. Cardiomegaly and pulmonary vascular congestion with presumed pulmonary edema. 2. Bibasilar atelectasis or consolidation with moderate left and small right pleural effusions. 3. ETT 2.9 cm above the amanda. Right IJ catheter unchanged. Enteric tube tip is not well seen. RADIA
[2017-10-14] MEDS: MIDAZOLAM DRIP 50 MG/100 ML BAG IV SCH ×2 (07:30→21:40)
[2017-10-14] MEDS: FAMOTIDINE 20 MG/50 ML 50 ML IV SCH ×2 (09:12→20:25)
[2017-10-14] MEDS: NYSTATIN CREAM 15 GM TUBE TOP SCH (10:07)
[2017-10-14] MEDS: DEXMEDETOMIDINE 400 MCG/100 ML 100 ML IV SCH ×2 (11:01→17:28)
[2017-10-14] MEDS: DEXTROSE 5%-0.9% NACL 1,000 ML IV SCH (11:06)
[2017-10-14] MEDS: AMIODARONE 360 MG/200 ML 200 ML IV SCH ×2 (11:29→20:34)
[2017-10-14] MEDS: SODIUM CHLORIDE FLUSH 0.9% 10 ML SYRINGE IVP SCH ×2 (11:32→17:23)
[2017-10-14] MEDS: AZITHROMYCIN INJ 500 MG in SODIUM CHLORIDE 0.9% 250 ML IV SCH (14:02)
[2017-10-14] MEDS: cefTRIAXone 1 GM in SODIUM CHLORIDE 0.9% MINIBAG 100 ML IV SCH (15:10)
[2017-10-14] MEDS: NYSTATIN POWDER 15 GM TOP SCH ×2 (16:34→20:34)
[2017-10-14] MEDS: THIAMINE INJ 100 MG, FOLIC ACID INJ 1 MG in SODIUM CHLORIDE 0.9% 100ML 100 ML IV SCH (21:04)
[2017-10-14] MEDS: CHLORHEXIDINE GLUCONATE 15 ML UDC PO SCH (22:12)
--- NOTE | 2017-10-14 23:12 | PROVIDER PROGRESS NOTE ---
Subjective - Prog Note Date Prog Note Date: 10/14/17 Prog Note Time: 14:00 - Subjective Subjective: overnight he had increasing episodes of Vtach but no change in BP with this. Amiodarone drip was increased. today, he is still intubated and we started the day on propofol and versed and levofed. BP was erratic and would vary from hypotension to hypertension and tachycardia when sedation lightened. I changed the propofol to precedex and his BP responded by not needing the levofed. sVersed was also tapered off. But he is more awake and will bite the tube. is at the bedside and I discussed his problems of pleural effusion, Vtach, alcohol withdrawal. She related he was hospitalized in 2007 at [facility] for aflutter and needed cardioversion. I reviewed those records and he was admitted for right lung pneumonia with large parapneumonic effusion that needed 2 thoracentesis and close to 3600 cc removed from his right lung. Cytology was neg and cultures were neg. He was also cardioverted to sinus by meds. She recalls an electric cardioversion at another time for aflutter. Current Medications - Current Medications Current Medications: Active Medications Chlorhexidine Gluconate (Peridex) 15 ml PO BID DIYA Last Admin: 10/14/17 22:12 Dose: 15 ml Heparin Sodium (Beef Lung) () 30 - 50 unit IVP PRN PRN PRN Reason: Central Line Protocol (<24 hr) Dextrose/Sodium Chloride (D5ns) 1,000 mls @ 100 mls/hr IV .Q10H DIYA Last Infusion: 10/14/17 19:00 Dose: 100 mls/hr Famotidine (Pepcid 20 Mg/50 Ml) 50 mls @ 100 mls/hr IV BID DIYA Last Infusion: 10/14/17 21:07 Dose: Infused Midazolam HCl (Versed Drip) 50 mg in 100 mls @ 9.872 mls/hr IV .Q10H8M DIYA; 0.04 MG/KG/HR PRN Reason: Protocol Last Titration: 10/14/17 22:26 Dose: 0.04 mg/kg/hr, 9.872 mls/hr Azithromycin 500 mg/ Sodium (Chloride) 250 mls @ 250 mls/hr IV Q24H DIYA Last Infusion: 10/14/17 15:07 Dose: Infused Ceftriaxone Sodium 1 gm/ (Sodium Chloride) 100 mls @ 200 mls/hr IV Q24H [facility] Last Infusion: 10/14/17 15:45 Dose: Infused Norepinephrine Bitartrate 8 mg (/ Dextrose) 250 mls @ 15 mls/hr IV .[id number] DIYA ; 8 MCG/MIN PRN Reason: Protocol Last Titration: 10/14/17 21:19 Dose: 0 mcg/min, 0 mls/hr Thiamine HCl 100 mg/ Folic (Acid 1 mg/ Sodium Chloride) 101.2 mls @ 50.6 mls/ hr IV Q24H [facility] Last Admin: 10/14/17 21:04 Dose: 50.6 mls/hr Amiodarone HCl/Dextrose (Nexterone 360 Mg/200 Ml) 200 mls @ 23.333 mls/hr IV .Q8H35M DIYA PRN Reason: 0.7 MG/MIN Last Infusion: 10/14/17 21:58 Dose: 0.7 mg/min, 23.333 mls/hr Dexmedetomidine/Sodium Chloride (Precedex Premix) 100 mls @ 6.575 mls/hr IV .[id number] DIYA; 0.2 MCG/KG/HR PRN Reason: Protocol Last Titration: 10/14/17 22:26 Dose: 0.4 mcg/kg/hr, 13.15 mls/hr Insulin Human Regular (Novolin R) 1 - 5 unit SUBQ Q6HR [facility] PRN Reason: Protocol Last Admin: 10/14/17 18:00 Dose: Not Given Loperamide HCl (Imodium Liquid) 2 mg PO PRN PRN PRN Reason: Diarrhea Mineral Oil (Cavilon) 1 applic TOP PRN PRN PRN Reason: Skin Care Nystatin (Nystop) 1 applic TOP BID [facility] Last Admin: 10/14/17 20:34 Dose: 1 applic Pantoprazole Sodium (Protonix) 40 mg IVP QDAC [facility] Last Admin: 10/14/17 06:42 Dose: 40 mg Prochlorperazine Edisylate (Compazine Inj) 10 mg IVP Q6HR PRN PRN Reason: Nausea / Vomiting Sodium Chloride (Normal Saline Flush 0.9%) 10 ml IVP 0100,0900,1700 [facility] Last Admin: 10/14/17 17:23 Dose: 10 ml Sodium Chloride (Normal Saline Flush 0.9%) 10 ml IVP PRN PRN PRN Reason: NEEDED PER PROVIDER ORDERS Last Admin: 10/13/17 17:04 Dose: 30 ml Furosemide 40 mg PO DAILY 05/02/16 Lovastatin 40 mg PO QPM 05/02/16 diltiaZEM [Cardizem] 90 mg PO BID 05/02/16 metFORMIN [Glucophage] 1,000 mg PO QDBREAKFAST 05/02/16 Albuterol Sulfate [Proair Hfa Inhaler] 2 puffs INH Q4H PRN 10/12/17 Aspirin 162.5 mg PO DAILY 10/12/17 Fluticasone 110 Mcg [Flovent] 2 puffs INH BID 10/12/17 Lisinopril 10 mg PO DAILY 10/12/17 Metoprolol Tartrate 50 mg PO BID 10/12/17 Objective - Vital Signs/Intake & Output Reviewed Vital Signs: Yes Vital Signs: Vital Signs x48h Temp Pulse Pulse Resp BP Pulse Ox 10/14/17 22:24 65 10/14/17 22:00 69 16 104/68 97 10/14/17 21:00 75 16 121/74 98 10/14/17 20:00 36.6 C 85 79 16 126/83 H 97 10/14/17 19:00 87 16 154/83 H 99 10/14/17 18:00 69 16 125/73 99 10/14/17 17:45 124/71 10/14/17 17:00 75 16 111/68 99 10/14/17 16:54 76 111/66 10/14/17 16:16 121/76 10/14/17 16:00 36.7 C 101 H 91 16 141/81 H 100 10/14/17 15:32 124/85 H Intake & Output: Intake & Output 10/11/17 10/12/17 10/13/17 10/14/17 23:59 23:59 23:59 23:59 Intake Total 5830.995 3339.948 3454.179 Output Total 160 2015 2580 Balance 6912.515 8084.948 874.179 - Objective General Appearance: positive: Other (intubated, sedated elderly white male, good skin color) Eyes Bilateral: positive: PERRL ENT: positive: No signs of dehydration Neck: positive: No JVD Respiratory: positive: Other (clear anteriorly, he is drawing 560-600 cc at a rate of 18 with TV 540 and rate 16 SIMV.) Cardiovascular: positive: Regular rate & rhythm, No murmur, No gallop, Extrasystoles Abdomen: positive: Abnml bowel sounds (hypoactive), Other (firm muscles, no distension, no grimace of pain w deep palpation) Extremities: positive: Pedal edema - Lab Results Fish Bones: 10/14/17 05:15 10/14/17 05:15 Other Labs: Lab Results x24hrs 10/14/17 10/14/17 10/14/17 Range/Units 09:07 05:15 05:15 WBC (4.8-10.8) x10^3/uL RBC (4.70-6.10) 10^6/uL Hgb (14.0-18.0) g/dL Hct (42.0-52.0) % MCV (80.0-94.0) fL MCH (27.0-31.0) pg MCHC (32.0-36.0) g/dL RDW (12.0-15.0) % Plt Count (130-450) 10^3/uL MPV (7.4-11.4) fL Neut # (Auto) (1.5-6.6) 10^3/uL Lymph # (Auto) (1.5-3.5) 10^3/uL Imperial # (Auto) (0.0-1.0) 10^3/uL Eos # (Auto) (0.0-0.7) 10^3/uL Baso # (Auto) (0.0-0.1) 10^3/uL Absolute Nucleated RBC x10^3/uL Nucleated RBC % /100WBC Sodium 146 H (135-145) mmol/L Potassium 4.5 (3.5-5.0) mmol/L Chloride 117 H (101-111) mmol/L Carbon Dioxide 24 (21-32) mmol/L Anion Gap 5.0 L (6-13) BUN 99 H* (6-20) mg/dL Creatinine 3.2 H (0.6-1.2) mg/dL Estimated GFR (MDRD) 19 L (>89) Glucose 108 H (70-100) mg/dL Calcium 7.9 L (8.5-10.3) mg/dL Phosphorus 3.8 (2.5-4.6) mg/dL Magnesium 1.7 (1.7-2.8) mg/dL Total Bilirubin 0.5 (0.2-1.0) mg/dL AST 21 (10-42) IU/L ALT 14 (10-60) IU/L Alkaline Phosphatase 66 (42-121) IU/L Total Creatine Kinase 199 (22-269) IU/L Total Protein 5.4 L (6.7-8.2) g/dL Albumin 2.5 L (3.2-5.5) g/dL Globulin 2.9 (2.1-4.2) g/dL Albumin/Globulin Ratio 0.9 L (1.0-2.2) Triglycerides 94 ( - 149) mg/dL 10/14/17 Range/Units 05:15 WBC 6.7 (4.8-10.8) x10^3/uL RBC 3.99 L (4.70-6.10) 10^6/uL Hgb 13.2 L (14.0-18.0) g/dL Hct 41.5 L (42.0-52.0) % MCV 104.0 H (80.0-94.0) fL MCH 33.1 H (27.0-31.0) pg MCHC 31.9 L (32.0-36.0) g/dL RDW 14.6 (12.0-15.0) % Plt Count 150 (130-450) 10^3/uL MPV 9.2 (7.4-11.4) fL Neut # (Auto) 5.5 (1.5-6.6) 10^3/uL Lymph # (Auto) 0.4 L (1.5-3.5) 10^3/uL Imperial # (Auto) 0.6 (0.0-1.0) 10^3/uL Eos # (Auto) 0.1 (0.0-0.7) 10^3/uL Baso # (Auto) 0.0 (0.0-0.1) 10^3/uL Absolute Nucleated RBC 0.00 x10^3/uL Nucleated RBC % 0.0 /100WBC Sodium (135-145) mmol/L Potassium (3.5-5.0) mmol/L Chloride (101-111) mmol/L Carbon Dioxide (21-32) mmol/L Anion Gap (6-13) BUN (6-20) mg/dL Creatinine (0.6-1.2) mg/dL Estimated GFR (MDRD) (>89) Glucose (70-100) mg/dL Calcium (8.5-10.3) mg/dL Phosphorus (2.5-4.6) mg/dL Magnesium (1.7-2.8) mg/dL Total Bilirubin (0.2-1.0) mg/dL AST (10-42) IU/L ALT (10-60) IU/L Alkaline Phosphatase (42-121) IU/L Total Creatine Kinase (22-269) IU/L Total Protein (6.7-8.2) g/dL Albumin (3.2-5.5) g/dL Globulin (2.1-4.2) g/dL Albumin/Globulin Ratio (1.0-2.2) Triglycerides ( - 149) mg/dL ABX Reporting Has patient been on IV antibiotics over the past 48 hours?: Yes Assessment/Plan - Problem List (1) Hypotension Impression: No evidence of KS or systolic LV failure (by Echo) so not Cardiogenic shock. No evidence of increased Lactic Acid or bacteremia so not Septic shock. Since the RV is dilated by Echo and patient was not drinking fluids, the most likely etiology of his hypotension is intravascular volume depletion plus right heart failure. I also think the propofol and versed may have contributed. Continue iv fluids. now off levophed. Continue a Patel and ng tube while he is critically ill. updated at bedside on his condition. (2) Respiratory failure Qualifiers: Chronicity: acute Respiratory failure complication: hypoxia and hypercapnia Qualified Code(s): J96.01 - Acute respiratory failure with hypoxia ; J96.02 - Acute respiratory failure with hypercapnia; J96.02 - Acute respiratory failure with hypercapnia; J96.02 - Acute respiratory failure with hypercapnia Assessment/Plan: Pt on empiric antibiotics for a community acquired pneumonia. Ventilator support is slowly decreasing. Assess mentation in am, Keep him intubated today. Hopefully we can start to wean in am. Await pleural fluid cultures, so far no gram stain on exam. Sputum culture was also ordered no growth so far. (3) Renal failure Qualifiers: Renal failure chronicity: acute on chronic Acute renal failure type: unspecified Chronic kidney disease stage: unspecified stage Qualified Code(s ): N17.9 - Acute kidney failure, unspecified; N18.9 - Chronic kidney disease, unspecified; N18.9 - Chronic kidney disease, unspecified Assessment/Plan: Pt has slowly continued to improve BUN/creat with iv hydration, making ATN from volume depletion very likely. Also, CK was 660 10/13, suggesting a component of Rhabdomyolysis as another cause of Renal failure. And, it is unknown if he has underlying chronic kidney disease, since he has not seen a doctor or had blood tests in 2 years. Continue gentle rehydration. Follow BMP daily. (4) Hyperkalemia Assessment/Plan: Improved with Insulin, D50 and Kayexelate dosing on admission. Follow BMP daily. (5) Rhabdomyolysis Assessment/Plan: The described that the patient was too weak to even eat. He may have been laying extensively, to have caused rhabdo. Moitor daily CK. Continue iv saline hydration. (6) Pleural effusion, left Assessment/Plan: Daily CXR ordered while on a ventilator. Today's CXR showed re-accumulating pleural effusion, now moderate after the L sided thoracentesis done in the ER. In the past he had severeal thoracentesis done. Await fluid analysis, which is likley a transudate, from CHF vs exudate from CAP. (7) CAP (community acquired pneumonia) Qualifiers: Laterality: left Assessment/Plan: Bilateral consolidation seen on CXR, L>R. Continue empiric iv Ceftrixone and Zithromax. Blood, sputum,, and pleural cultures pending. (8) Diabetes mellitus Assessment/Plan: Patient on a sliding scale Insulin coverage for non-eating patient. He has a hypoglycemia order and POC glu monitoring. Continue iv D5NS. (9) Anasarca Assessment/Plan: Possibly from R heart failure vs fom CKD vs from venous insufficiency vs lymphedema vs alcoholic liver disease. No diuresis started currently, given his GUSTAVO since he needs intravascular volume replacement. Keep legs elevated. Will plan venous Dopplers of legs and Wound MAC clinic consult for wraps or other topical care. (10) Cor pulmonale Assessment/Plan: Echo done shows normal LVEF, diastolic function could not be determined, RV dilation seen and modereate reduced RV function described on a final echo report. He also has moderate MR. RVSP risen from last ECHO, was 52 and now 67 mm Hg,. Possible etiologies could be COPD or sleep apnea (given his obesity). No diuresis to be started yet. Possible Spironolactone in the future (11) Pulmonary HTN Assessment/Plan: As in #9 above. (12) V-tach Assessment/Plan: Back to further VTach on Amiodarone drip so it was increased. Today he has ectopy and prolonged ID, so rate reduced. Corrected serum potassium continues. (13) Afib Assessment/Plan: The patient converted to NSR at mid day 10/13, per Telemetry. A 12-lead EKG confirmed this. Amiodarone iv drip and correction of hyperkalemia and hypoxia, probably helped. His CHADS score = 2 (HTN and Diabetes, but he doesn't have systolic LV CHF), therefore he should be on an anticoagulant in the future. The told me he has been in Afib before. It is unclear why he wasn't taking an anticoagulant. Perhaps that was one of the meds that he refused to take that were prescribed by Dr Torrez or Dr Smart (per his ). Or perhaps he ran out since he had not seen a doctor in 2 years. Will currently use a daily ASA, per rectal suppository, for CVA prophylaxis. (14) Altered mental status Assessment/Plan: While on sedative drips, unable to assess mental status for abnormality. Ammonia was 27. Will await for weaning of vent setting, then iv precedex weaning, then assess mental status. After sedatives weaned to off, he began to have shakes and BP cesia to 215/80, suggesting alcohol withdrawal. Will restart iv Versed (benzo). Possibly a head CT will be needed. (15) Non compliance with medical treatment Assessment/Plan: He needs follow-up with a PCP and Cardiology and possibly with a [facility] and a [facility] Center, after this hospitalization.
[2017-10-15] MEDS: INSULIN REGULAR HUMAN 100 UNIT/1 ML 10 ML MDV SUBQ SCH ×5 (00:06→23:56)
[2017-10-15] MEDS: SODIUM CHLORIDE FLUSH 0.9% 10 ML SYRINGE IVP SCH ×4 (00:07→20:16)
[2017-10-15] MEDS: DEXTROSE 5%-0.9% NACL 1,000 ML IV SCH ×2 (01:18→06:24)
[2017-10-15] MEDS ORDERED: AMIODARONE 360 MG/200 ML 200 ML IV SCH (01:54)
[2017-10-15] MEDS: AMIODARONE 360 MG/200 ML 200 ML IV SCH (02:56)
[2017-10-15] MEDS: DEXMEDETOMIDINE 400 MCG/100 ML 100 ML IV SCH (02:57)
[2017-10-15] MEDS ORDERED: MAGNESIUM SULFATE 1 GM in SODIUM CHLORIDE 0.9% 50 ML IV ONE (05:04)
[2017-10-15] MEDS: SODIUM CHLORIDE FLUSH 0.9% 10 ML SYRINGE IVP PRN ×2 (05:41→20:16)
--- NOTE | 2017-10-15 05:46 | XRAY Report ---
Procedure Date: 10/15/2017 Accession Number: [id number] / [id number] Procedure: XR - Chest 1 View X-Ray CPT Code: 64867 FULL RESULT: EXAM: CHEST RADIOGRAPHY EXAM DATE: 10/15/2017 05:37 AM. CLINICAL HISTORY: F/U intubation and thoracentesis. COMPARISON: CHEST 1 VIEW 10/14/2017 5:52 AM. TECHNIQUE: 1 view. FINDINGS: Lungs/Pleura: Pulmonary opacities are similar compared with the prior exam. Small pleural effusions. No pneumothorax seen. Mediastinum: Moderate to marked cardiomegaly and/or pericardial effusion. Other: Endotracheal tube tip is 4.8 cm above the amanda. Enteric tube tip is not well seen. Right internal jugular catheter tip in the upper SVC. IMPRESSION: 1. Cardiomegaly with pulmonary opacities and small pleural effusions. 2. ETT 4.8 cm above the amanda. Right IJ catheter unchanged. Enteric tube tip is not well-seen. RADIA
[2017-10-15 05:50] LABS: BASOPHILS % (AUTO) 0.5 %; EOSINOPHILS # (AUTO) 0.1 10^3/uL (0.0-0.7); EOSINOPHILS % (AUTO) 1.2 %; HGB - HEMOGLOBIN 14.3 g/dL (14.0-18.0); LYMPHOCYTES # (AUTO) 0.5 10^3/uL (1.5-3.5); LYMPHOCYTES % (AUTO) 8.2 %; MEAN CORPUSCULAR HEMOGLOBIN 32.9 pg (27.0-31.0); MEAN CORPUSCULAR HGB CONC 32.3 g/dL (32.0-36.0); MEAN CORPUSCULAR VOLUME 101.9 fL (80.0-94.0); MEAN PLATELET VOLUME 9.1 fL (7.4-11.4); MONOCYTES # (AUTO) 0.7 10^3/uL (0.0-1.0); MONOCYTES % (AUTO) 13.2 %; NEUTROPHILS # (AUTO) 4.4 10^3/uL (1.5-6.6); NEUTROPHILS % (AUTO) 76.9 %; PLT - PLATELET COUNT 140 10^3/uL (130-450); RED BLOOD COUNT 4.36 10^6/uL (4.70-6.10); RED CELL DISTRIBUTION WIDTH 14.8 % (12.0-15.0); WHITE BLOOD COUNT 5.7 x10^3/uL (4.8-10.8)
[2017-10-15 06:08] LABS: ALBUMIN 2.4 g/dL (3.2-5.5); ALBUMIN/GLOBULIN RATIO 0.8 (1.0-2.2); BILIRUBIN,TOTAL 0.3 mg/dL (0.2-1.0); CREATININE 2.5 mg/dL (0.6-1.2); MAGNESIUM 1.7 mg/dL (1.7-2.8); PHOSPHORUS 3.2 mg/dL (2.5-4.6); TOTAL PROTEIN 5.6 g/dL (6.7-8.2)
[2017-10-15] MEDS: PANTOPRAZOLE 40 MG VIAL IVP SCH (06:21)
[2017-10-15] MEDS ORDERED: DEXTROSE 5%-0.9% NACL 1,000 ML IV SCH (08:00)
[2017-10-15] MEDS: CHLORHEXIDINE GLUCONATE 15 ML UDC PO SCH ×2 (08:42→20:26)
[2017-10-15] MEDS: NYSTATIN POWDER 15 GM TOP SCH ×2 (08:42→20:26)
[2017-10-15] MEDS: FAMOTIDINE 20 MG/50 ML 50 ML IV SCH (08:42)
[2017-10-15 11:03] LABS: ABG BASE EXCESS -3.5 mmol/L (-2.0-3.0); ABG HCO3 19.9 mmol/L (22.0-26.0); ABG PCO2 32 mmHg (34-45); ABG PH 7.41 (7.35-7.45); ABG PO2 106 mmHg (80-100); ABG TCO2 20.9 MMOL/L (21.0-29.0)
[2017-10-15 11:04] LABS: ABG OXYGEN SATURATION 98 % (94-98); ALLEN TEST POSITIVE
--- NOTE | 2017-10-15 12:10 | PROVIDER PROGRESS NOTE ---
Subjective - Prog Note Date Prog Note Date: 10/15/17 Prog Note Time: 11:48 - Subjective Subjective: is at the bedside and she shares new info: 2002: cardioversion for afib by [facility], [place] 2008: atrial fib episode with pneumonia at [facility] [place] 2011: episode of acute CHF at [facility]. she thinks he became allergic to digitalis then but not sure. 05/30/11: admit for leg infection and swelling , given a walker. he is still intubated, sedation off. precedex and amiodarone off since he was bebe to 40's w junctional for a while this am. Now sinus and pulse 50's. BP stable. Responds to voice and follows commands. Eyes closed. Current Medications - Current Medications Current Medications: Active Medications Chlorhexidine Gluconate (Peridex) 15 ml PO BID DIYA Last Admin: 10/15/17 08:42 Dose: 15 ml Heparin Sodium (Beef Lung) () 30 - 50 unit IVP PRN PRN PRN Reason: Central Line Protocol (<24 hr) Famotidine (Pepcid 20 Mg/50 Ml) 50 mls @ 100 mls/hr IV BID DIYA Last Admin: 10/15/17 08:42 Dose: 100 mls/hr Midazolam HCl (Versed Drip) 50 mg in 100 mls @ 9.872 mls/hr IV .Q10H8M DIYA; 0.04 MG/KG/HR PRN Reason: Protocol Last Titration: 10/15/17 01:15 Dose: 0 mg/kg/hr, 0 mls/hr Azithromycin 500 mg/ Sodium (Chloride) 250 mls @ 250 mls/hr IV Q24H DIYA Last Infusion: 10/14/17 15:07 Dose: Infused Ceftriaxone Sodium 1 gm/ (Sodium Chloride) 100 mls @ 200 mls/hr IV Q24H DIYA Last Infusion: 10/14/17 15:45 Dose: Infused Norepinephrine Bitartrate 8 mg (/ Dextrose) 250 mls @ 15 mls/hr IV .[id number] DIYA ; 8 MCG/MIN PRN Reason: Protocol Last Admin: 10/14/17 23:18 Dose: Not Given Thiamine HCl 100 mg/ Folic (Acid 1 mg/ Sodium Chloride) 101.2 mls @ 50.6 mls/ hr IV Q24H [facility] Last Infusion: 10/14/17 23:15 Dose: Infused Dextrose/Sodium Chloride (D5ns) 1,000 mls @ 100 mls/hr IV .Q10H [facility] Insulin Human Regular (Novolin R) 1 - 5 unit SUBQ Q6HR DIYA PRN Reason: Protocol Last Admin: 10/15/17 06:21 Dose: Not Given Loperamide HCl (Imodium Liquid) 2 mg PO PRN PRN PRN Reason: Diarrhea Mineral Oil (Cavilon) 1 applic TOP PRN PRN PRN Reason: Skin Care Nystatin (Nystop) 1 applic TOP BID [facility] Last Admin: 10/15/17 08:42 Dose: 1 applic Pantoprazole Sodium (Protonix) 40 mg IVP QDAC [facility] Last Admin: 10/15/17 06:21 Dose: 40 mg Prochlorperazine Edisylate (Compazine Inj) 10 mg IVP Q6HR PRN PRN Reason: Nausea / Vomiting Sodium Chloride (Normal Saline Flush 0.9%) 10 ml IVP 0100,0900,1700 [facility] Last Admin: 10/15/17 08:46 Dose: 10 ml Sodium Chloride (Normal Saline Flush 0.9%) 10 ml IVP PRN PRN PRN Reason: NEEDED PER PROVIDER ORDERS Last Admin: 10/15/17 05:41 Dose: 30 ml Furosemide 40 mg PO DAILY 05/02/16 Lovastatin 40 mg PO QPM 05/02/16 diltiaZEM [Cardizem] 90 mg PO BID 05/02/16 metFORMIN [Glucophage] 1,000 mg PO QDBREAKFAST 05/02/16 Albuterol Sulfate [Proair Hfa Inhaler] 2 puffs INH Q4H PRN 10/12/17 Aspirin 162.5 mg PO DAILY 10/12/17 Fluticasone 110 Mcg [Flovent] 2 puffs INH BID 10/12/17 Lisinopril 10 mg PO DAILY 10/12/17 Metoprolol Tartrate 50 mg PO BID 10/12/17 Objective - Vital Signs/Intake & Output Reviewed Vital Signs: Yes Vital Signs: Vital Signs Temp Pulse Pulse Resp BP Pulse Ox 10/15/17 11:15 57 L 10/15/17 11:00 55 L 16 100/54 L 100 10/15/17 10:00 55 L 18 113/74 100 10/15/17 09:58 52 L 07/25/18 09:00 53 L 18 104/68 100 10/15/17 08:33 56 L 10/15/17 08:00 36.6 C 48 L 16 127/72 99 Intake & Output: Intake & Output 10/12/17 10/13/17 10/14/17 10/15/17 23:59 23:59 23:59 23:59 Intake Total 9892.692 6415.948 3777.433 372.366 Output Total 160 2015 2640 493 Balance 5151.471 5893.948 1137.433 -120.634 - Objective General Appearance: positive: No acute distress, Other (intubated, obese white elderly man,) Eyes Bilateral: positive: PERRL ENT: positive: Pharynx nml Neck: positive: No JVD. negative: Carotid bruit Respiratory: positive: Chest non-tender, Other (clear anteriorly.). negative: Wheezes, Rales, Rhonchi Cardiovascular: positive: Regular rate & rhythm. negative: Systolic murmur, Gallop/S4, Friction rub Abdomen: positive: Non-tender, Nml bowel sounds (today, he wa hypoactive yesterday.), Other (tenseness of abd wall from edema especially lower anterior abd). negative: Guarding, Rebound Skin: positive: Warm, Dry Extremities: positive: Pedal edema (to above knee). negative: Joint swelling Neurologic/Psychiatric: positive: Motor nml - Lab Results Fish Bones: 10/15/17 05:35 10/15/17 05:35 Other Labs: Lab Results x24hrs 10/15/17 10/15/17 10/15/17 Range/Units 10:53 05:35 05:35 WBC (4.8-10.8) x10^3/uL RBC (4.70-6.10) 10^6/uL Hgb (14.0-18.0) g/dL Hct (42.0-52.0) % MCV (80.0-94.0) fL MCH (27.0-31.0) pg MCHC (32.0-36.0) g/dL RDW (12.0-15.0) % Plt Count (130-450) 10^3/uL MPV (7.4-11.4) fL Neut # (Auto) (1.5-6.6) 10^3/uL Lymph # (Auto) (1.5-3.5) 10^3/uL [place] # (Auto) (0.0-1.0) 10^3/uL Eos # (Auto) (0.0-0.7) 10^3/uL Baso # (Auto) (0.0-0.1) 10^3/uL Absolute Nucleated RBC x10^3/uL Nucleated RBC % /100WBC Bld Gas Analysis Time 1059 Sample Site LEFT RADIAL ABG pH 7.41 (7.35-7.45) ABG pCO2 32 L (34-45) mmHg ABG pO2 106 H (80-100) mmHg ABG HCO3 19.9 L (22.0-26.0) mmol/L ABG Total CO2 20.9 L (21.0-29.0) MMOL/L ABG O2 Saturation 98 (94-98) % ABG Oximetry Spot Check 100 % ABG Base Excess -3.5 L (-2.0-3.0) mmol/L Berny Test POSITIVE Respiration Rate 14 b/min O2 Delivery Device VENTILATOR Vent Mode SIMV FiO2 40.00 Tidal Volume 626 mL PEEP 5 cmH2O Pressure Support Vent 10 cmH2O Sodium 149 H (135-145) mmol/L Potassium 4.5 (3.5-5.0) mmol/L Chloride 119 H (101-111) mmol/L Carbon Dioxide 24 (21-32) mmol/L Anion Gap 6.0 (6-13) BUN 80 H* (6-20) mg/dL Creatinine 2.5 H (0.6-1.2) mg/dL Estimated GFR (MDRD) 25 L (>89) Glucose 151 H (70-100) mg/dL Calcium 8.0 L (8.5-10.3) mg/dL Phosphorus 3.2 (2.5-4.6) mg/dL Magnesium 1.7 (1.7-2.8) mg/dL Total Bilirubin 0.3 (0.2-1.0) mg/dL AST 17 (10-42) IU/L ALT 13 (10-60) IU/L Alkaline Phosphatase 77 (42-121) IU/L Total Creatine Kinase 97 (22-269) IU/L Total Protein 5.6 L (6.7-8.2) g/dL Albumin 2.4 L (3.2-5.5) g/dL Globulin 3.2 (2.1-4.2) g/dL Albumin/Globulin Ratio 0.8 L (1.0-2.2) 10/15/17 Range/Units 05:35 WBC 5.7 (4.8-10.8) x10^3/uL RBC 4.36 L (4.70-6.10) 10^6/uL Hgb 14.3 (14.0-18.0) g/dL Hct 44.4 (42.0-52.0) % MCV 101.9 H (80.0-94.0) fL MCH 32.9 H (27.0-31.0) pg MCHC 32.3 (32.0-36.0) g/dL RDW 14.8 (12.0-15.0) % Plt Count 140 (130-450) 10^3/uL MPV 9.1 (7.4-11.4) fL Neut # (Auto) 4.4 (1.5-6.6) 10^3/uL Lymph # (Auto) 0.5 L (1.5-3.5) 10^3/uL [place] # (Auto) 0.7 (0.0-1.0) 10^3/uL Eos # (Auto) 0.1 (0.0-0.7) 10^3/uL Baso # (Auto) 0.0 (0.0-0.1) 10^3/uL Absolute Nucleated RBC 0.00 x10^3/uL Nucleated RBC % 0.1 /100WBC Bld Gas Analysis Time Sample Site ABG pH (7.35-7.45) ABG pCO2 (34-45) mmHg ABG pO2 (80-100) mmHg ABG HCO3 (22.0-26.0) mmol/L ABG Total CO2 (21.0-29.0) MMOL/L ABG O2 Saturation (94-98) % ABG Oximetry Spot Check % ABG Base Excess (-2.0-3.0) mmol/L Berny Test Respiration Rate b/min O2 Delivery Device Vent Mode FiO2 Tidal Volume mL PEEP cmH2O Pressure Support Vent cmH2O Sodium (135-145) mmol/L Potassium (3.5-5.0) mmol/L Chloride (101-111) mmol/L Carbon Dioxide (21-32) mmol/L Anion Gap (6-13) BUN (6-20) mg/dL Creatinine (0.6-1.2) mg/dL Estimated GFR (MDRD) (>89) Glucose (70-100) mg/dL Calcium (8.5-10.3) mg/dL Phosphorus (2.5-4.6) mg/dL Magnesium (1.7-2.8) mg/dL Total Bilirubin (0.2-1.0) mg/dL AST (10-42) IU/L ALT (10-60) IU/L Alkaline Phosphatase (42-121) IU/L Total Creatine Kinase (22-269) IU/L Total Protein (6.7-8.2) g/dL Albumin (3.2-5.5) g/dL Globulin (2.1-4.2) g/dL Albumin/Globulin Ratio (1.0-2.2) Assessment/Plan - Problem List (1) Bradyarrhythmia Impression: at times P waves disappear on some leads and to INTAKE COUNSELOR, fears junctional rhythm but there are P waves on other leads. I have stopped amiodarone and precedex to make sure they are not the cause. V tach was still a problem and I will have to use betapace if it returns. (2) Hypotension Impression: Resolved as of yesterday afternoon. Cause is multifactorial. Off levophed. He was 130's until this am and now 100's. No evidence of DC or systolic LV failure (by Echo) so not Cardiogenic shock. No evidence of increased Lactic Acid or bacteremia so not Septic shock. Since the RV is dilated by Echo and patient was not drinking fluids, the most likely etiology of his hypotension is intravascular volume depletion plus right heart failure. I also think the propofol and versed may have contributed. Continue iv fluids. Use levophed gain if needed. Continue a Patel and ng tube while he is critically ill. updated at bedside on his condition. (3) Respiratory failure Qualifiers: Chronicity: acute Respiratory failure complication: hypoxia and hypercapnia Qualified Code(s): J96.01 - Acute respiratory failure with hypoxia ; J96.02 - Acute respiratory failure with hypercapnia; J96.02 - Acute respiratory failure with hypercapnia; J96.02 - Acute respiratory failure with hypercapnia Assessment/Plan: From pneumonia and corpulmonale and pleural effusion. Pt on empiric antibiotics for a community acquired pneumonia. Day #3 today. Ventilator support is slowly decreasing. Assessed mentation this am and he is following commands but not breathing above is set rate of 14. Await pleural fluid cultures, so far no bacteria on gram stain. Sputum culture shows normal resp miriam. Blood cultures are negative. (4) Renal failure Qualifiers: Renal failure chronicity: acute on chronic Acute renal failure type: unspecified Chronic kidney disease stage: unspecified stage Qualified Code(s ): N17.9 - Acute kidney failure, unspecified; N18.9 - Chronic kidney disease, unspecified; N18.9 - Chronic kidney disease, unspecified Assessment/Plan: Pt continues to improve daily with BUN/creat with iv hydration, making ATN from volume depletion very likely. Also, CK was 660 10/13, suggesting a component of Rhabdomyolysis as another cause of Renal failure. And, it is unknown if he has underlying chronic kidney disease, since he has not seen a doctor or had blood tests in 2 years. Continue gentle rehydration. Follow BMP daily. (5) Hyperkalemia Assessment/Plan: Resolved with Insulin, D50 and Kayexelate dosing on admission. Follow BMP daily. (6) Rhabdomyolysis Assessment/Plan: The described that the patient was too weak to even eat. He may have been laying extensively, to have caused rhabdo. It was ~800 then 199 and now 97 today. Stop checking. Change to D5 since sodium is rising. (7) Pleural effusion, left Assessment/Plan: Daily CXR ordered while on a ventilator. CXR shows re-accumulating pleural effusion, now moderate after the L sided thoracentesis done in the ER. In the past he had several thoracentesis done. Await fluid analysis, which is likley a transudate, from CHF vs exudate from CAP. The chemistries are send out. Fluid with blood in it. (8) CAP (community acquired pneumonia) Qualifiers: Laterality: left Assessment/Plan: Bilateral consolidation seen on CXR, L>R. Continue empiric iv Ceftrixone and Zithromax. Day #3 Blood, sputum cultures are neg and pleural fluid culture pending. (9) Diabetes mellitus Assessment/Plan: Patient on a sliding scale Insulin coverage for non-eating patient. He has a hypoglycemia order and POC glu monitoring. Continue iv D5NS. (10) Anasarca Assessment/Plan: Possibly from R heart failure vs fom CKD vs alcoholic liver disease. Right now legs, scrotum and abd wall involved. No diuresis started currently, given his GUSTAVO since he needs intravascular volume replacement. Keep legs elevated. Will plan venous Dopplers of legs and Wound MAC clinic consult for wraps or other topical care. (11) Cor pulmonale Assessment/Plan: Echo done shows normal LVEF, diastolic function could not be determined, RV dilation seen and modereate reduced RV function described on a final echo report. He also has moderate MR. RVSP risen from last ECHO, was 52 and now 67 mm Hg,. Possible etiologies could be COPD or sleep apnea (given his obesity). No diuresis to be started yet. Possible Spironolactone in the future (12) Pulmonary HTN Assessment/Plan: As in #11 above. (13) V-tach Assessment/Plan: Had VTach even on Amiodarone drip so it was increased evening of 10/13. Then reduced bc of bradyarrhythmia yesterday. Today he has enough bebe that I have stopped it. (14) Afib Assessment/Plan: The patient converted to NSR at mid day 10/13, per Telemetry. A 12-lead EKG confirmed this. Amiodarone iv drip and correction of hyperkalemia and hypoxia, probably helped. His CHADS score = 2 (HTN and Diabetes, but he doesn't have systolic LV CHF), therefore he should be on an anticoagulant in the future. The told me he has been in Afib before. It is unclear why he wasn't taking an anticoagulant. Perhaps that was one of the meds that he refused to take that were prescribed by Dr Torrez or Dr Smart (per his ). Or perhaps he ran out since he had not seen a doctor in 2 years. Will currently use a daily ASA, per rectal suppository, for CVA prophylaxis. (15) Altered mental status Assessment/Plan: While on sedative drips, unable to assess mental status for abnormality. Ammonia was 27. I have stopped sedatives to extubate him. He is responding to voice commands but eyes still closed. After sedatives weaned to off, he began to have shakes and BP cesia to 215/80, suggesting alcohol withdrawal. Will keep off versed and use ativan prn to avoid hypotension. No CT head needed. (16) Non compliance with medical treatment Assessment/Plan: He needs follow-up with a PCP and Cardiology and possibly with a Guest Service Team Leader and a Sleep Center, after this hospitalization.
[2017-10-15] MEDS: MIDAZOLAM DRIP 50 MG/100 ML BAG IV SCH ×2 (13:47→18:20)
[2017-10-15] MEDS: AZITHROMYCIN INJ 500 MG in SODIUM CHLORIDE 0.9% 250 ML IV SCH (13:50)
[2017-10-15] MEDS: cefTRIAXone 1 GM in SODIUM CHLORIDE 0.9% MINIBAG 100 ML IV SCH (15:14)
[2017-10-15] MEDS: DEXTROSE 5% 1,000 ML IV SCH (15:19)
[2017-10-15 17:27] LABS: ABG HCO3 20.7 mmol/L (22.0-26.0); ABG PCO2 42 mmHg (34-45); ABG PH 7.31 (7.35-7.45); ABG PO2 98 mmHg (80-100)
[2017-10-15 17:28] LABS: ABG BASE EXCESS -5.4 mmol/L (-2.0-3.0); ABG OXYGEN SATURATION 96 % (94-98); ALLEN TEST POSITIVE
[2017-10-15] MEDS: MORPHINE 2 MG/ML SYRINGE IVP PRN (20:16)
[2017-10-15] MEDS ORDERED: THIAMINE 100 MG/1 ML 2 ML MDV ONE (20:17)
[2017-10-15] MEDS ORDERED: SODIUM CHLORIDE 0.9% 100ML 100 ML IV ONE (20:17)
[2017-10-15] MEDS: THIAMINE INJ 100 MG, FOLIC ACID INJ 1 MG in SODIUM CHLORIDE 0.9% 100ML 100 ML IV SCH (20:26)
[2017-10-15] MEDS: LORazepam 2 MG/ML VIAL IVP PRN ×3 (21:19→23:02)
[2017-10-16] MEDS: MORPHINE 2 MG/ML SYRINGE IVP PRN ×2 (00:46→06:17)
[2017-10-16] MEDS: DEXTROSE 5% 1,000 ML IV SCH ×3 (01:55→22:10)
[2017-10-16] MEDS: LORazepam 2 MG/ML VIAL IVP PRN ×2 (01:55→16:39)
[2017-10-16 02:04] LABS: ALBUMIN 2.6 g/dL (3.2-5.5); ALBUMIN/GLOBULIN RATIO 0.8 (1.0-2.2); ALKALINE PHOSPHATASE 77 IU/L (42-121); ALT ALANINE AMINOTRANSFERASE 13 IU/L (10-60); AST ASPARTATE AMINOTRANSFERASE 14 IU/L (10-42); BILIRUBIN,TOTAL 0.5 mg/dL (0.2-1.0); BUN - BLOOD UREA NITROGEN 68 mg/dL (6-20); CALCIUM 8.1 mg/dL (8.5-10.3); CARBON DIOXIDE - CO2 23 mmol/L (21-32); CHLORIDE 119 mmol/L (101-111); CREATININE 2.2 mg/dL (0.6-1.2); GFR - MDRD 29 (>89); GLUCOSE 112 mg/dL (70-100); MAGNESIUM 1.8 mg/dL (1.7-2.8); PHOSPHORUS 3.4 mg/dL (2.5-4.6); SODIUM 150 mmol/L (135-145); TOTAL PROTEIN 5.9 g/dL (6.7-8.2)
[2017-10-16 03:02] LABS: VBG PH 7.285 (7.31-7.41)
[2017-10-16] MEDS: MIDAZOLAM DRIP 50 MG/100 ML BAG IV SCH ×2 (05:52→15:07)
[2017-10-16] MEDS: INSULIN REGULAR HUMAN 100 UNIT/1 ML 10 ML MDV SUBQ SCH ×3 (05:59→18:49)
[2017-10-16] MEDS: SODIUM CHLORIDE FLUSH 0.9% 10 ML SYRINGE IVP PRN ×2 (06:14→20:41)
[2017-10-16] MEDS: PANTOPRAZOLE 40 MG VIAL IVP SCH (06:14)
--- NOTE | 2017-10-16 07:59 | PROVIDER PROGRESS NOTE ---
Subjective - Prog Note Date Prog Note Date: 10/16/17 Prog Note Time: 08:04 - Subjective Subjective: Between yesterday and today, he did well on the vent. By approximately 5 PM yesterday we will try to decide if we were going to extubate him or not. Parameters look good and he was awake and alert enough to follow commands. But since it was late in the evening we opted to keep him on the ventilator until this morning. This morning he is stable. He has been on CPAP with no hypoxia, no tachycardia, no struggling to breathe. However his knee if and tidal volume , spontaneous, are low. We are worried that he is not to be able to clear the secretions he is producing which are gonzales colored and copious. He is off the amiodarone since yesterday. No V. tach or ectopy. His pulse rate is gone up into the 80s now. Still sinus rhythm. Current Medications - Current Medications Current Medications: Active Medications Chlorhexidine Gluconate (Peridex) 15 ml PO BID DIYA Last Admin: 10/15/17 20:26 Dose: 15 ml Heparin Sodium (Beef Lung) () 30 - 50 unit IVP PRN PRN PRN Reason: Central Line Protocol (<24 hr) Last Admin: 10/15/17 20:17 Dose: 60 unit Midazolam HCl (Versed Drip) 50 mg in 100 mls @ 9.872 mls/hr IV .Q10H8M DIYA; 0.04 MG/KG/HR PRN Reason: Protocol Last Admin: 10/16/17 05:52 Dose: Not Given Azithromycin 500 mg/ Sodium (Chloride) 250 mls @ 250 mls/hr IV Q24H DIYA Last Infusion: 10/15/17 15:15 Dose: Infused Ceftriaxone Sodium 1 gm/ (Sodium Chloride) 100 mls @ 200 mls/hr IV Q24H DIYA Last Infusion: 10/15/17 16:17 Dose: Infused Norepinephrine Bitartrate 8 mg (/ Dextrose) 250 mls @ 15 mls/hr IV .[id number] DIYA ; 8 MCG/MIN PRN Reason: Protocol Last Admin: 10/16/17 07:44 Dose: Not Given Thiamine HCl 100 mg/ Folic (Acid 1 mg/ Sodium Chloride) 101.2 mls @ 50.6 mls/ hr IV Q24H [facility] Last Infusion: 10/15/17 22:35 Dose: Infused Dextrose (D5w) 1,000 mls @ 100 mls/hr IV .Q10H [facility] Last Infusion: 10/16/17 07:00 Dose: 100 mls/hr Insulin Human Regular (Novolin R) 1 - 5 unit SUBQ Q6HR DIYA PRN Reason: Protocol Last Admin: 10/16/17 05:59 Dose: Not Given Loperamide HCl (Imodium Liquid) 2 mg PO PRN PRN PRN Reason: Diarrhea Lorazepam (Ativan Inj (Vial)) 2 mg IVP Q2H PRN PRN Reason: Anxiety Last Admin: 10/16/17 01:55 Dose: 2 mg Mineral Oil (Cavilon) 1 applic TOP PRN PRN PRN Reason: Skin Care Morphine Sulfate (Morphine) 2 mg IVP Q2H PRN PRN Reason: PAIN Last Admin: 10/16/17 06:17 Dose: 2 mg Nystatin (Nystop) 1 applic TOP BID [facility] Last Admin: 10/15/17 20:26 Dose: 1 applic Pantoprazole Sodium (Protonix) 40 mg IVP QDAC [facility] Last Admin: 10/16/17 06:14 Dose: 40 mg Prochlorperazine Edisylate (Compazine Inj) 10 mg IVP Q6HR PRN PRN Reason: Nausea / Vomiting Sodium Chloride (Normal Saline Flush 0.9%) 10 ml IVP 0100,0900,1700 [facility] Last Admin: 10/15/17 20:16 Dose: 10 ml Sodium Chloride (Normal Saline Flush 0.9%) 10 ml IVP PRN PRN PRN Reason: NEEDED PER PROVIDER ORDERS Last Admin: 10/16/17 06:14 Dose: 10 ml Furosemide 40 mg PO DAILY 05/02/16 Lovastatin 40 mg PO QPM 05/02/16 diltiaZEM [Cardizem] 90 mg PO BID 05/02/16 metFORMIN [Glucophage] 1,000 mg PO QDBREAKFAST 05/02/16 Albuterol Sulfate [Proair Hfa Inhaler] 2 puffs INH Q4H PRN 10/12/17 Aspirin 162.5 mg PO DAILY 10/12/17 Fluticasone 110 Mcg [Flovent] 2 puffs INH BID 10/12/17 Lisinopril 10 mg PO DAILY 10/12/17 Metoprolol Tartrate 50 mg PO BID 10/12/17 Objective - Vital Signs/Intake & Output Reviewed Vital Signs: Yes Vital Signs: Vital Signs Temp Pulse Pulse Resp BP Pulse Ox 10/16/17 07:30 94 10/16/17 07:00 88 21 132/74 H 98 10/16/17 06:00 85 26 H 132/71 H 98 10/16/17 05:30 131 H 10/16/17 05:00 92 25 H 158/84 H 95 10/16/17 04:18 37.6 C H 10/16/17 04:00 95 25 H 129/63 99 Intake & Output: Intake & Output 10/13/17 10/14/17 10/15/17 10/16/17 23:59 23:59 23:59 23:59 Intake Total 5677.948 3777.433 2891.899 770.000 Output Total 2014 2640 1141 355 Balance 3662.948 1354.589 2974.899 415.000 - Objective General Appearance: positive: No acute distress, Other (Eyes open. Follows me when I walk in the room. Still intubated. Occasionally flex his hand and index finger to indicate yes or no. Shakes his head yes or no to.) Eyes Bilateral: positive: PERRL ENT: positive: Other (Intubation tube in place) Neck: positive: No JVD. negative: Stiff neck, Carotid bruit Respiratory: positive: Chest non-tender, No respiratory distress, Rhonchi. negative: Wheezes Cardiovascular: positive: Regular rate & rhythm. negative: Gallop/S4, Friction rub Abdomen: positive: Non-tender, No organomegaly, Nml bowel sounds, Other ( Abdominal wall with edema in lower abdomen, into scrotum extending to thighs knees and calves) Skin: positive: Warm Extremities: positive: Pedal edema Neurologic/Psychiatric: positive: Other (Intubated, eyes open, answers yes no. Able to spontaneously move limbs with purpose.) - Lab Results Fish Bones: 10/15/17 05:35 10/16/17 01:45 Other Labs: Lab Results x24hrs 10/16/17 10/16/17 10/15/17 Range/Units 01:45 01:45 17:05 Bld Gas Analysis Time 1713 Sample Site LEFT RADIAL ABG pH 7.31 L (7.35-7.45) ABG pCO2 42 (34-45) mmHg ABG pO2 98 (80-100) mmHg ABG HCO3 20.7 L (22.0-26.0) mmol/L ABG Total CO2 22.0 (21.0-29.0) MMOL/L ABG O2 Saturation 96 (94-98) % ABG Oximetry Spot Check 98 % ABG Base Excess -5.4 L (-2.0-3.0) mmol/L Berny Test POSITIVE VBG pH 7.285 L (7.31-7.41) Ionized Calcium 1.18 YES (1.15-1.33) mmol/L Respiration Rate 23 b/min O2 Delivery Device VENTILATOR Vent Mode CPAP FiO2 40.00 Tidal Volume 386 mL PEEP 5 cmH2O Pressure Support Vent 10 cmH2O Sodium 150 H (135-145) mmol/L Potassium 4.4 (3.5-5.0) mmol/L Chloride 119 H (101-111) mmol/L Carbon Dioxide 23 (21-32) mmol/L Anion Gap 8.0 (6-13) BUN 68 H (6-20) mg/dL Creatinine 2.2 H (0.6-1.2) mg/dL Estimated GFR (MDRD) 29 L (>89) Glucose 112 H (70-100) mg/dL Calcium 8.1 L (8.5-10.3) mg/dL Phosphorus 3.4 (2.5-4.6) mg/dL Magnesium 1.8 (1.7-2.8) mg/dL Total Bilirubin 0.5 (0.2-1.0) mg/dL AST 14 (10-42) IU/L ALT 13 (10-60) IU/L Alkaline Phosphatase 77 (42-121) IU/L Total Protein 5.9 L (6.7-8.2) g/dL Albumin 2.6 L (3.2-5.5) g/dL Globulin 3.3 (2.1-4.2) g/dL Albumin/Globulin Ratio 0.8 L (1.0-2.2) 10/15/17 Range/Units 10:53 Bld Gas Analysis Time 1059 Sample Site LEFT RADIAL ABG pH 7.41 (7.35-7.45) ABG pCO2 32 L (34-45) mmHg ABG pO2 106 H (80-100) mmHg ABG HCO3 19.9 L (22.0-26.0) mmol/L ABG Total CO2 20.9 L (21.0-29.0) MMOL/L ABG O2 Saturation 98 (94-98) % ABG Oximetry Spot Check 100 % ABG Base Excess -3.5 L (-2.0-3.0) mmol/L Berny Test POSITIVE VBG pH (7.31-7.41) Ionized Calcium (1.15-1.33) mmol/L Respiration Rate 14 b/min O2 Delivery Device VENTILATOR Vent Mode SIMV FiO2 40.00 Tidal Volume 626 mL PEEP 5 cmH2O Pressure Support Vent 10 cmH2O Sodium (135-145) mmol/L Potassium (3.5-5.0) mmol/L Chloride (101-111) mmol/L Carbon Dioxide (21-32) mmol/L Anion Gap (6-13) BUN (6-20) mg/dL Creatinine (0.6-1.2) mg/dL Estimated GFR (MDRD) (>89) Glucose (70-100) mg/dL Calcium (8.5-10.3) mg/dL Phosphorus (2.5-4.6) mg/dL Magnesium (1.7-2.8) mg/dL Total Bilirubin (0.2-1.0) mg/dL AST (10-42) IU/L ALT (10-60) IU/L Alkaline Phosphatase (42-121) IU/L Total Protein (6.7-8.2) g/dL Albumin (3.2-5.5) g/dL Globulin (2.1-4.2) g/dL Albumin/Globulin Ratio (1.0-2.2) Assessment/Plan - Problem List (1) Acute respiratory failure with hypoxia and hypercapnia Impression: Qualifiers: Chronicity: acute Respiratory failure complication: hypoxia and hypercapnia Qualified Code(s): J96.01 - Acute respiratory failure with hypoxia ; J96.02 - Acute respiratory failure with hypercapnia; J96.02 - Acute respiratory failure with hypercapnia; J96.02 - Acute respiratory failure with hypercapnia Assessment/Plan: From pneumonia and corpulmonale and pleural effusion. Pt on empiric antibiotics for a community acquired pneumonia. Day #4 today. Ventilator support is slowly decreasing. Assessed mentation this yesterday and he is following commands but not breathing above is set rate of 14. By 17:30 was stable blood gas, following commands but I opted to watch overnight since it was late in the day to do extubation. this am, will put back on CPAP and by 10 am reassess. See advanced care plan discussion. Will extubate today. Await pleural fluid cultures, so far no bacteria on gram stain. Sputum culture shows normal resp miriam. Blood cultures are negative. (2) Renal failure Qualifiers: Renal failure chronicity: acute on chronic Acute renal failure type: unspecified Chronic kidney disease stage: unspecified stage Qualified Code(s ): N17.9 - Acute kidney failure, unspecified; N18.9 - Chronic kidney disease, unspecified; N18.9 - Chronic kidney disease, unspecified Assessment/Plan: Pt continues to improve daily with BUN/creat with iv hydration, making ATN from volume depletion very likely. Also, CK was 660 10/13, suggesting a component of Rhabdomyolysis as another cause of Renal failure. And, it is unknown if he has underlying chronic kidney disease, since he has not seen a doctor or had blood tests in 2 years. Continue gentle rehydration and NS changed to D5 for the high Na. Follow BMP daily. (3) Hyperkalemia and hyponatremia Assessment/Plan: High potassium resolved with Insulin, D50 and Kayexelate dosing on admission. Sodium keeps on rising in spite of adding D5 drip. will continue D5 Follow BMP daily. (4) Rhabdomyolysis Assessment/Plan: The described that the patient was too weak to even eat. He may have been laying extensively, to have caused rhabdo. It was ~800 then 199 and now 97 today. Stop checking. Change to D5 since sodium is rising. (5) Pleural effusion, left Assessment/Plan: Daily CXR ordered while on a ventilator. CXR shows re-accumulating pleural effusion, now moderate after the L sided thoracentesis done in the ER. In the past he had several thoracentesis done. Await fluid analysis, which is likley a transudate, from CHF vs exudate from CAP. The chemistries are send out. Fluid with blood in it. (6) CAP (community acquired pneumonia) Qualifiers: Laterality: left Assessment/Plan: Bilateral consolidation seen on CXR, L>R.He is producing copious amounts of gonzales fluid w suction Continue empiric iv Ceftrixone and Zithromax. Day #4 Blood, sputum cultures are neg and pleural fluid culture pending. (7) Diabetes mellitus Assessment/Plan: Patient on a sliding scale Insulin coverage for non-eating patient. He has a hypoglycemia order and POC glu monitoring. Continue iv D5NS. (8) Anasarca Assessment/Plan: Possibly from R heart failure vs fom CKD vs alcoholic liver disease. Right now legs, scrotum and abd wall involved. No diuresis started currently, given his GUSTAVO since he needs intravascular volume replacement. Keep legs elevated. Plan was venous Dopplers of legs and Wound MAC clinic consult for wraps or other topical care. So far his skin of leg have not opened up so no wound care neeed. Dopplers not ordered yet. (9) Cor pulmonale Assessment/Plan: Echo done shows normal LVEF, diastolic function could not be determined, RV dilation seen and modereate reduced RV function described on a final echo report. He also has moderate MR. RVSP risen from last ECHO, was 52 and now 67 mm Hg,. Possible etiologies could be COPD or sleep apnea (given his obesity). No diuresis to be started yet. Possible Spironolactone in the future (10) Pulmonary HTN Assessment/Plan: As in #9 above. (11) V-tach Assessment/Plan: Had VTach even on Amiodarone drip so it was increased evening of 10/13. Then reduced bc of bradyarrhythmia 10/14. 10/15 he has continuous bradycardia with a developing block that I have stopped it. (12) Afib Assessment/Plan: The patient converted to NSR at mid day 10/13, per Telemetry. A 12-lead EKG confirmed this. Amiodarone iv drip and correction of hyperkalemia and hypoxia, probably helped. His CHADS score = 2 (HTN and Diabetes, but he doesn't have systolic LV CHF), therefore he should be on an anticoagulant in the future. The told me he has been in Afib before. It is unclear why he wasn't taking an anticoagulant. Perhaps that was one of the meds that he refused to take that were prescribed by Dr Torrez or Dr Smart (per his ). Or perhaps he ran out since he had not seen a doctor in 2 years. Will currently use a daily ASA, per rectal suppository, for CVA prophylaxis. (13) Altered mental status Assessment/Plan: While on sedative drips, unable to assess mental status for abnormality. Ammonia was 27. I have stopped sedatives to extubate him. He is responding to voice commands but eyes were closed. yesterday was more and more interactive w eyes open. This am, he is chewing on the tube. Nodding yes or shaking head no appropropriately. After sedatives weaned to off, he began to have shakes and BP cesia to 215/80, suggesting alcohol withdrawal. Will keep off versed and use ativan prn to avoid hypotension. No CT head needed. (14) Non compliance with medical treatment Assessment/Plan: He needs follow-up with a PCP and Cardiology and possibly with a [facility], after this hospitalization. (15) Hypotension Impression: No evidence of PA or systolic LV failure (by Echo) so not Cardiogenic shock. No evidence of increased Lactic Acid or bacteremia so not Septic shock. Since the RV is dilated by Echo and patient was not drinking fluids, the most likely etiology of his hypotension is intravascular volume depletion plus right heart failure. I also think the propofol and versed may have contributed. Continue iv fluids. Off levophed by 10/14 Continue a Patel and ng tube while he is critically ill.
[2017-10-16] MEDS: NYSTATIN POWDER 15 GM TOP SCH ×2 (09:02→20:48)
[2017-10-16] MEDS: SODIUM CHLORIDE FLUSH 0.9% 10 ML SYRINGE IVP SCH ×2 (09:02→16:39)
[2017-10-16] MEDS: CHLORHEXIDINE GLUCONATE 15 ML UDC PO SCH ×2 (09:02→20:42)
[2017-10-16 09:24] LABS: ABG BASE EXCESS -2.8 mmol/L (-2.0-3.0); ABG HCO3 23.2 mmol/L (22.0-26.0); ABG PCO2 44 mmHg (34-45); ABG PH 7.34 (7.35-7.45); ABG PO2 92 mmHg (80-100); ABG TCO2 24.5 MMOL/L (21.0-29.0)
[2017-10-16 09:25] LABS: ALLEN TEST POSITIVE
--- NOTE | 2017-10-16 12:43 | ADVANCE CARE PLANNING NOTE ---
Advance Care Planning - Date/Time Date: 10/16/17 Time: 12:37 - Purpose of encounter Text: Trying to assess patient and 's expectations with regards to his chronic respiratory failure if we extubate today - Parties in attendance Parties in attendance: and hospitalist, Dr. Deluna - Decisional capacity Decisional capacity of: Patient is impaired. He is intubated. Has received many sedation medicines in the last few days. All of this conversation is dependent on 's opinion and history - Subjective/Patient's story Subjective/Patient's story: The patient was born in [facility] And lived on the [facility] his entire life until he moved would be [place] in the late early . 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 She was the primary breadwinner, and this allowed him to be the artist he wanted to be. He was never a successful as he wanted to be. When they retired, they opted to move to [facility] because her mother lived in [place]. They about properly in the late and moved into it in 1991. He initially had a 2sms scholarship for his art work, had a few arch shows. And then everything just petered out. As time is going on he has become increasingly despondent and depressed that he never became the artist to envision himself being. He is always been a heavy drinker. But in the last couple of years has taken to drink more and more. As his disappointment and depression deepened he has been pushing people away. He thought with his sister a couple of months ago when her son . His son of alcoholic liver disease and its complications. He told his sister that he blamed her for her son's drinking. He had a fight with his best friend who is his 's brother. Has not spoken to him in a couple of years. Thinks all the people at the [employer] are a bunch of "hassle" so he has not been socializing with his buddies. He is becoming more more socially ostracized and isolated. On top of that at all of his illnesses with regards to chronic congestive heart failure, atrial fibrillation, and generalized feeling badly. But he thinks that all doctors are "full of Scheidt". And in spite of her prompting has declined to go see people when he was getting sicker and sicker. Occasionally he is very cruel to her. All verbal. Never physically abusive. But then he apologizes and says that she is the only one he can take things out on. She seems to accept that and forgiven for that. In the last few months he has become increasingly disabled. He is not getting out of the house, eating less and less, becoming progressively more short of breath, progressively more edematous. 3 days before admission he started sleeping all day long but able to get up at least once a day. On the day of admission he had gotten up at all and she decided to call EMS. She has been trying to get him to see a doctor or come to the emergency room for weeks and he refused. In the emergency room he was with acute respiratory failure, pneumonia, renal failure. He has been intubated, on pressors and being kept alive. She shares with me that he was always a DO NOT RESUSCITATE. When asked if he would want to be intubated she told the emergency room doctor know. However the emergency room doctor talked her into it. He described this is a temporary situation. Much like a plant that needed watering. You can water the plants and watch it get better, or water the plant and watch her diet. If the plant did not get better, you could always take it out of its pocket and let it go. She assumed that her would get better, and felt that the odds were in his favor. She did not quite anticipate that he would still be in the ICU and intubated 5 days later. He has always stated that he never wanted to be resuscitated. Never wanted to leave his home. Never wanted to be placed in a fdc facility. He would rather than do any of those things. - Objective/Medical story Objective/Medical Story: Morbidly obese, sedentary, white male. Known problems of congestive heart failure from cor pulmonale, atrial fibrillation, previous history of pneumonia, as well as bilateral thoracentesis for pleural effusions associated with pneumonia. This patient has been noncompliant with regards to taking his medicines, or following up with routine medical care. In the description of his and what we found in the emergency room this is a gentleman that is an alcoholic, drinks 3 bottles of wine a day, most likely developed uncontrolled A. fib, worsening cor pulmonale, and pneumonia. He needed to be intubated, on pressors , and aggressively resuscitated. While he has been in the ICU complications of been arrhythmias from Precedex. He is still on antibiotics, intubated. We are looking at extubation today. - Goals of Care Goals of care determinations: His goals of care have been stated in the past. Never to be resuscitated with intubation or CPR. Never to go to a shelter. To always remain in his own home. He also wanted to be an artist that was recognized not only by critics but by a pain customer who will allow him to validate (financially)h is worth - Plan Plan: Extubate the patient today. Now that I know that he never wanted to be intubated it makes an easier decision. Once he is extubated we will then allow us to determine whether he is going to survive this current acute episode or not. He will be continued on IV antibiotics. Aggressive pulmonary toilet. Nebulizers. Plan is to start physical therapy and then probable SNF placement. This will be a difficult transition not only for he but his . She feels tremendous guilt that she even agreed to have him intubated. Now he may end up in a fdc facility and he never wanted that. On top of that, they do not have the finances for that. She herself has Parkinson's disease and would not be able to bring him home to take care of them. They do not have the finances for that either. If this patient continues to deteriorate after extubation, and it is imminent, the would like to consider a transfer to [facility]. - Code Status Code Status: Do Not Attempt Resuscitation - Time Spent on Advance Care Planning Time spent on advance care plannin minutes
[2017-10-16] MEDS: AZITHROMYCIN INJ 500 MG in SODIUM CHLORIDE 0.9% 250 ML IV SCH (15:16)
[2017-10-16] MEDS: cefTRIAXone 1 GM in SODIUM CHLORIDE 0.9% MINIBAG 100 ML IV SCH (16:31)
[2017-10-16] MEDS ORDERED: SODIUM CHLORIDE INHALATION 3 ML NEB ONE (16:39)
[2017-10-16] MEDS ORDERED: METOPROLOL 5 MG/5 ML VIAL IVP PRN (19:44)
[2017-10-16] MEDS ORDERED: METOPROLOL 5 MG/5 ML VIAL IVP ONE (19:59)
[2017-10-16] MEDS ORDERED: SODIUM CHLORIDE FLUSH 0.9% 10 ML SYRINGE ONE (19:59)
[2017-10-16] MEDS: THIAMINE INJ 100 MG, FOLIC ACID INJ 1 MG in SODIUM CHLORIDE 0.9% 100ML 100 ML IV SCH (20:41)
[2017-10-16 21:07] VITALS: BP 88/50
[2017-10-16] MEDS ORDERED: SODIUM CHLORIDE 0.9% 1,000 ML IV ONE (21:10)
[2017-10-16] MEDS ORDERED: GLYCOPYRROLATE 1 MG/5 ML VIAL SUBQ PRN (21:57)
--- NOTE | 2017-10-16 22:03 | PROVIDER PROGRESS NOTE ---
Hospitalist Cross-cover Note - Cross-Cover Note Cross-Cover Note: The patient's condition was continuing to worsen over the course of the night as he was becoming increasingly hypotensive with decreased urine output. The patient was having increasing anasarca and was unresponsive. I spoke with the patient's who asked that we stop aggressive treatment and make the patient comfort care. She will remain at bedside through the night. We will discontinue all medication and remove the patient's central line. Patient will be treated with morphine and Ativan for comfort. If the patient does get through the night the patient's is interested in hospice at [facility]. The patient's condition is critical at this point and appears to be an imminent.
[2017-10-16] MEDS: MORPHINE SOL 10 MG/0.5 ML SYRINGE SL PRN (23:11)
[2017-10-17] MEDS: ATROPINE 1% OPHTH DROPS 2 ML SL PRN ×3 (01:58→10:32)
[2017-10-17] MEDS: MORPHINE SOL 10 MG/0.5 ML SYRINGE SL PRN ×3 (07:42→12:38)
[2017-10-17] MEDS: CHLORHEXIDINE GLUCONATE 15 ML UDC PO SCH (08:18)
[2017-10-17] MEDS: LORazepam 0.5 MG TABLET SL PRN ×2 (08:48→10:28)
--- NOTE | 2017-10-24 19:13 | DISCHARGE SUMMARY ---
Physician: Suri Trejo MD DATE OF ADMISSION: 10/12/2017 DATE OF DISCHARGE: 10/17/2017 PRIMARY CARE PROVIDER: MARISELA Palafox DISCHARGE DIAGNOSES 1. Acute respiratory failure with hypoxia and hypercapnia. 2. Community-acquired pneumonia. 3. Alcoholic liver disease. 4. Acute on chronic renal failure. 5. Electrolyte abnormalities. 6. Rhabdomyolysis. 7. Left pleural effusion. 8. Type 2 diabetes mellitus, controlled. No complications. 9. Cor pulmonale, chronic. 10. Hypertension. 11. Ventricular tachycardia. 12. Atrial fibrillation, chronic. 13. Noncompliance with medical regimen. PRINCIPAL PROCEDURES 1. Multiple chest x-rays showing cardiomegaly with pulmonary opacities, left greater than right, sma ll pleural effusions. Effusions were left greater than right. 2. Echocardiogram showing atrial fibrillation as the underlying rhythm, ejection fraction of 60% to 65%, severe right ventricular enlargement, moderately impaired right ventricular systolic function, m oderate mitral regurgitation, right ventricular systolic pressure at rest 67 mmHg, which had increase d from July 2015 report at 52 mmHg. 3. Thoracentesis. 4. Blood cultures negative. 5. Pleural fluid culture negative. 6. Respiratory culture with normal respiratory miriam. HOSPITAL COURSE: This gentleman is a 76-year-old man who has been drinking heavily for many months. In speaking to his , he has had depression and a "giving up" attitude for many months now. He h as been short of breath for about 6 months, worse over the last 3 days. He has been too short of elier ath to take in any fluids or solid foods. This morning, when she woke up, she was unable to arouse h im and called 911. He was hyperventilating, shallow breathing, poorly responsive even to sternal rub . He was found to have a large left pleural effusion and underwent an emergent thoracentesis in the emergency room, removing 1600 mL of yellow fluid that was red tinged. Small pneumothorax resulted on the left, incomplete reexpansion of his lung. He was hypotensive in the emergency room, required sa line liter boluses, acute on chronic failure with a creatinine now 4.8 and a potassium of 7.5. He re ceived insulin, D50 and bicarbonate. initially confirmed that he was a full code. However, no dialysis was to be planned and she wanted any possible procedure to be discussed with her. On teleme try, he was having atrial fibrillation with rapid ventricular response and 2 separate episodes of kristi ymorphic ventricular tachycardia at a rate of 280 that spontaneously stopped. His hospital course was initially one of improvement. His acute respiratory failure with hypoxia was attributed to his community-acquired pneumonia and pleural effusion. Those were in turn felt to be significantly worse because of his alcoholic liver disease and chronic drinking status of 2 liters 1 a day. It was also revealed that he had not seen a primary care provider in over 2 years. While his renal failure improved, nutritional status and respiratory status continued to be problematic and he was intubated. Also of note was rhabdomyolysis from being, probably, in bed for so long. With intu bation, his respiratory failure stabilized. Blood gases were excellent on a low FiO2. However, the patient had poor respiratory effort on his own. He was felt to have cor pulmonale and was diuresed. Blood pressure control was maintained. Ventricular tachycardia was treated with amiodarone drip. U nfortunately, the amiodarone would then induce its own bradyarrhythmias as well. After 2 days on the ventilator discussing what we are going to do, the then shared with us that he actually did not want any of this to happen. When she was first asked about his resuscitative sta tus, she felt like she was being told that if she did not agree to resuscitation, she is going to let her . In retrospect, she feels that that is probably what he would have wanted over the last few years. He never wanted to be intubated, never wanted to receive CPR. She feels that she ma y have overthought the decision when she was first presented with treatment in the emergency room. Advanced care planning conversation was noted in the record with all of this. I then carefully asked her if he was to stay on a ventilator because of poor respiratory effort, would he want that. She s aid no. As such, I presented with an option of extubating our patient or keeping on ventilator. She already felt that he was here for too many days and never would have wanted this so opted for extuba tion. I did explain to her that if he was not able to provide his own respiratory effort for deep br eathing and clearing of secretions, he would gradually fall back into acute respiratory failure and p ossibly . She felt that that was an acceptable possibility and that she understood her had never wanted any of this anyway. As such, the patient was extubated, drips were continued but after 12 hours, it felt like his respiratory status was deteriorating even further and she asked us to transition him t o comfort measures only. The patient with his at the bedside. Greater than 30 minutes was spent in coordinating final planning, being at the bedside with the , and speaking to his friends. cc: MARISELA Sorenson TD: 10/24/2017 10:21
== END 2017-10-17 13:20 | disposition expired | DRG 208 ==
LOC: EDUNIT# → ED 12:58 → ICU 15:26
PROVIDERS: ADMIT Internal Medicine; ATTEND Specialist
PROC: 5A1945Z Respiratory Ventilation, 24-96 Consecutive Hours (ICD-10-PCS; principal; 2017-10-12)
PROC: 02HV33Z Insertion of Infusion Device into Superior Vena Cava, Percutaneous Approach (ICD-10-PCS; 2017-10-12)
DX: J96.22 Acute and chronic respiratory failure with hypercapnia (principal); J90 Pleural effusion, not elsewhere classified; B35.6 Tinea cruris; R40.0 Somnolence; J96.01 Acute respiratory failure with hypoxia; J96.02 Acute respiratory failure with hypercapnia; J12.9 Viral pneumonia, unspecified; E11.22 Type 2 diabetes mellitus with diabetic chronic kidney disease; N17.0 Acute kidney failure with tubular necrosis; N17.9 Acute kidney failure, unspecified; J43.9 Emphysema, unspecified; E78.00 Pure hypercholesterolemia, unspecified; I48.91 Unspecified atrial fibrillation; R32 Unspecified urinary incontinence; J18.1 Lobar pneumonia, unspecified organism; M62.82 Rhabdomyolysis; I47.2 Ventricular tachycardia; Z87.01 Personal history of pneumonia (recurrent); J95.811 Postprocedural pneumothorax; J91.8 Pleural effusion in other conditions classified elsewhere; J44.0 Chronic obstructive pulmonary disease with (acute) lower respiratory infection; I13.0 Hypertensive heart and chronic kidney disease with heart failure and stage 1 through stage 4 chronic kidney disease, or unspecified chronic kidney disease; I48.92 Unspecified atrial flutter; F10.239 Alcohol dependence with withdrawal, unspecified; E87.0 Hyperosmolality and hypernatremia; J96.21 Acute and chronic respiratory failure with hypoxia; I50.9 Heart failure, unspecified; I49.8 Other specified cardiac arrhythmias; T46.2X5A Adverse effect of other antidysrhythmic drugs, initial encounter; I27.29 Other secondary pulmonary hypertension; K70.9 Alcoholic liver disease, unspecified; N18.9 Chronic kidney disease, unspecified; I95.9 Hypotension, unspecified; E11.9 Type 2 diabetes mellitus without complications; I27.81 Cor pulmonale (chronic); I48.2 Chronic atrial fibrillation; Z51.5 Encounter for palliative care; Z66 Do not resuscitate; I34.0 Nonrheumatic mitral (valve) insufficiency; Y84.4 Aspiration of fluid as the cause of abnormal reaction of the patient, or of later complication, without mention of misadventure at the time of the procedure; Y92.238 Other place in hospital as the place of occurrence of the external cause; T42.6X5A Adverse effect of other antiepileptic and sedative-hypnotic drugs, initial encounter; E66.01 Morbid (severe) obesity due to excess calories; I87.8 Other specified disorders of veins; H91.91 Unspecified hearing loss, right ear; E87.5 Hyperkalemia; E86.9 Volume depletion, unspecified; Z78.1 Physical restraint status; Z68.38 Body mass index [BMI] 38.0-38.9, adult; Z91.19 Patient's noncompliance with other medical treatment and regimen; Z79.84 Long term (current) use of oral hypoglycemic drugs; Z91.11 Patient's noncompliance with dietary regimen; Z79.899 Other long term (current) drug therapy; Z79.82 Long term (current) use of aspirin; Z79.51 Long term (current) use of inhaled steroids
CPT/HCPCS: 31500; 32554; 36415; 36600; 51702; 71045; 80048; 80053; 80320; 81001; 81003; 81599; 82140; 82330; 82550; 82803; 83605; 83690; 83735; 83880; 84100; 84132; 84478; 84484; 85025; 87040; 87070; 87086; 87150; 87205; 87493; 89051; 93005; 93306; 94002; 94003; 96361; 96365; 96368; 96375; 99285; 99291; 99292